=== PATIENT | female | born 1930 | race Caucasian/White ===

== ENCOUNTER → 2016-02-15 | Outpatient (REF) | payer MEDICARE, BC, MEDICAID ==
[~2016-02-15] MED LIST: ACET500T37 PO; ADV100INH INH; ADVAIR INH; ALBU17IN INH; ALBU83IN INH; ALBUTEROL INH; ALPH0.156 OU; ALPHAGAN OU; AMIT10TA PO; AMIT10TA2 PO; ARMO1TAB PO; ARTI99.0 OU; B12 PO; BENI20TA11 PO; BIMA01SOL OU; BYSTOLIC PO; CALC600T21 PO; CALCTAB93 PO; CETI10TA PO; CETI5TAB2; CLAR10CA3 PO; COLA100C PO; CVS5TAB10 PO; CYMB60CA3 PO; DICLCRY TOP; DILT30TA PO; DILT60TA PO; DIOV160T6 PO; DOCU10CA PO; ENEM1ENE4 PR; ERYTOIN8 EXT; EXFO5TAB PO; EXPECTORANT; EXTR500C4 PO; FERR325T3 PO; FERR325T69 PO; FLECTOR1.3; FLON0.05; FOLI400T PO; Flexeril PO; GABA-283 PO; GUAI5EL PO; GUAI5ELAC PO; GUIATUSS PO; IMOD2CHW PO; K-TA10TA2 PO; KLOR1TAB69 PO; LEVO50TA5 PO; LIDO5DIS; LIDO5DIS EXT; LOPE2TAB PO; LOPE2TAB3 PO; MAGN400C2 PO; MAGN400T2 PO; MAGN400T5 PO; MEGA40SU PO; MEGA625S PO; METH2.5TA PO; MILKSUS PO; MIRA3350 PO; MULTCHW13 PO; MULTIVIT OR; MULTIVITAMEN PO; MULTTAB4 PO; NEUR100C PO; NITR4TASL SL; NORV5TAB PO; OCTIVITE PO; PLAV75TA PO; POTA99TA PO; PRED5TAB PO; PRESCAP6 PO; PREV30TA; PRIL20CA PO; PRIL40CA OR; PROT1TAB2 PO; REFRSOL OP; REFRSOL OU; SENO8.6T10 PO; SERO50TA PO; SING10TA32 PO; SOMA250T OR; SOMA350T PO; SYMB16INH INH; SYMB80INH INH; THYR15TA PO; TRAM50TA2 PO; TRAZO50TA PO; TYLE325T5 PO; ULTR37.539 PO; ULTR50TA PO; ULTRTA PO; VENTAER INH; VIT D 2000 PO; VIT D PO; VITA500046 PO; VITA500T3 PO; VOLT1GEL EX; XALA0.002 OU; XANA0.5T PO; [UNRECOGNIZED DRUG - CODE] PO; [UNRECOGNIZED DRUG - CODE] PO; [UNRECOGNIZED DRUG - OTHER] OU; [UNRECOGNIZED DRUG - OTHER] PO; [UNRECOGNIZED DRUG - OTHER] PO; [UNRECOGNIZED DRUG - OTHER] PO; albuterol nebulizer INH
[2016-02-15 10:47] LABS: BASO % 0.5 % (0.0-1.0); EOS # 0.1 K/mm3 (0.0-0.50); EOS % 4.1 % (0.0-3.0); LARGE UNSTAINED CELL # 0.1 K/mm3 (0.0-0.4); LARGE UNSTAINED CELL % 2.7 % (0.0-4.0); LYMPH # 1.5 K/mm3 (1.5-4.5); LYMPH % 50.5 % (24.0-44.0); MEAN CORPUSCULAR HEMOGLOBIN 33.5 pg (27.0-33.0); MEAN CORPUSCULAR HGB CONC 32.4 g/dl (32.0-36.5); MEAN CORPUSCULAR VOLUME 103.3 fl (80.0-96.0); MONO # 0.2 K/mm3 (0.0-0.8); MONO % 6.4 % (0.0-5.0); NEUTROPHILS % 35.9 % (36.0-66.0); PLATELET COUNT, AUTOMATED 153 k/mm3 (150-450); RED CELL DISTRIBUTION WIDTH 13.9 % (11.5-14.5); WHITE BLOOD COUNT 2.8 K/mm3 (4.0-10.0)
[2016-02-15 11:29] LABS: ALBUMIN/GLOBULIN RATIO 1.25 (1.00-1.93); ALKALINE PHOSPHATASE 44 U/L (45-117); ALT/SGPT 13 U/L (12-78); ANION GAP 10 MEQ/L (8-16); AST/SGOT 14 U/L (15-37); BILIRUBIN,TOTAL 0.5 MG/DL (0.2-1.0); BLOOD UREA NITROGEN 18 MG/DL (7-18); CALCIUM LEVEL 8.1 MG/DL (8.8-10.2); CARBON DIOXIDE LEVEL 28 MEQ/L (21-32); CHLORIDE LEVEL 104 MEQ/L (98-107); CREATININE FOR GFR 0.66 MG/DL (0.55-1.02); GLOMERULAR FILTRATION RATE > 60.0 (>32); GLUCOSE, FASTING 72 MG/DL (83-110); POTASSIUM SERUM 4.3 MEQ/L (3.5-5.1); SODIUM LEVEL 142 MEQ/L (136-145); TOTAL PROTEIN 5.4 GM/DL (6.4-8.2)
== END ==
PROVIDERS: ATTEND Internal Medicine Rheumatology
DX: M06.09 Rheumatoid arthritis without rheumatoid factor, multiple sites (principal); M81.0 Age-related osteoporosis without current pathological fracture

== ENCOUNTER 2016-03-01 16:29 | Emergency (ER) | payer MEDICARE, BC, MEDICAID ==
[~2016-03-01 16:29] MED LIST changes: -PLAV75TA PO; +PLAV75TA38 PO; -PRIL20CA PO; +PRIL20CA9 PO
--- NOTE | 2016-03-01 18:36 | EDDOCDS ---
Nurse's Notes [facility] Name: Brit Telles Age: 85 yrs Sex: Female : 1930 Arrival Date: 03/01/2016 Time: 16:29 Bed PR Private MD: Dalton Argueta Diagnosis: Sprain of ankle-RIGHT MEDIAL ANKLE SPRAIN Presentation: 03/01 16:39 Presenting complaint: Patient states: Right foot pain unknown injury dark purple bruise mlb1 noted to medial aspect of right ankle. Adult Sepsis Screening: The patient does not have new or worsening altered mentation. Patient's respiratory rate is less than 22. Systolic blood pressure is greater than 100. Patient has a qSOFA score of 0- Negative Sepsis Screen. Suicide/Homicide risk assessment- the patient denies having any suicidal and/or homicidal ideations and does not present with any other emotional, behavioral or mental health complaints. 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 Transition of care: patient was received from [facility]-assisted. 16:39 Acuity: SUZY Level 4 mlb1 16:39 Method Of Arrival: Walkin/Carried/Asstd mlb1 Triage Assessment: 16:48 General: Appears in no apparent distress, comfortable, Behavior is appropriate for age, mlb1 cooperative. Pain: Location: right foot Pain currently is 10 out of 10 on a pain scale. Pain radiates to right foot. Musculoskeletal: Signs and Symptoms of Compartment Syndrome:. Historical: - Allergies: Alprazolam; Aspirin; Codeine Sulfate; Diazepam; Gluten Protein; IODINEIODINE CONTAINING; lactose (bulk); Latex; Morphine; Oxycodone HCl; PENICILLINS; QUINOLONES; SHELLFISH; SULFA (SULFONAMIDES); Valium; - Home Meds: 1. tramadol 50 mg Oral tab 1 tab every 12 hours as needed 2. Tylenol 500mg Oral 1 tab every 4 hours 3. diltiazem HCl 30 mg Oral tab 1 tab every 8 hours for Hypertension 4. albuterol sulfate 2.5 mg /3 mL (0.083 %) Inhl nebu q4h prn 5. melatonin 5 mg Oral cap nightly 6. Seroquel 50 mg Oral tab 1 tab nightly 7. Claritin 10 mg Oral tab 1 tab once daily 8. Alphagan P 0.15 % ophthalmic drop 1 drop twice a day 9. Artificial Tears 1.4% Opht 1 drop four times a day 10. calcium carbonate 600 mg (1,500 mg) Oral tab twice a day 11. Colace 100 mg oral cap 1 cap twice a day as needed 12. Cymbalta 60 mg Oral cpDR 1 cap nightly 13. Enema Disposable 19-7 gram/118 mL Rectal enem as needed 14. ferrous gluconate 325 mg (37 mg iron) Oral tab nightly 15. folic acid 1 mg Oral tab 1 tab once daily 16. gabapentin 100 mg Oral cap twice a day 17. levothyroxine 50 mcg Oral tab 1 tab once daily 18. loperamide 2 mg Oral tab as needed 19. magnesium oxide 400 mg Oral tab 400 mg twice a day 20. Milk of Magnesia 400 mg/5 mL Oral susp 5 mL as needed 21. Miralax 17 gram/dose Oral powd 17 g as needed 22. nitroglycerin 0.4 mg SL subl 1 tab every 5 minutes 23. potassium chloride 10 mEq Oral cpER 1 cap 2 times per day 24. PreserVision AREDS [id number]-lhje-ky-mg oral 1 cap twice a day 25. ProAir HFA 90 mcg/actuation inhalation HFAA 2 puffs q4h prn 26. Senokot-S 8.6-50 mg oral tab 2 tabs nightly 27. Protonix 40 mg Oral cpDR 1 tab once daily 28. Refresh Optive Advanced 0.5-1-0.5 % ophthalmic drop 1 gtt four times a day 29. Singulair 10 mg Oral tab 1 tab nightly 30. Symbicort 80-4.5 mcg/actuation inhalation HFAA 2 puffs 2 times per day 31. Vitamin B-12 500 mcg Oral tab nightly 32. Vitamin D3 5,000 unit oral tab daily 33. Xalatan 0.005 % Opht drop 1 drop nightly - PMHx: Anemia; Asthma; CHF; Depression; Hypertension; Hypothyroidism; Macular Degeneration; Osteoporosis; peripheral vascular disease; Rheumatoid Arthritis; Scoliosis; Chronic Back pain; Supraventricular complexes; - PSHx: Knee surgery- Right; back surgery; Cataract Surgery- Bilateral; Cholecystectomy; - Social history: Smoking status: Patient states was never smoker of tobacco. No barriers to communication noted, The patient speaks fluent Samoan, Speaks appropriately for age. - Family history: Not pertinent. - : The pt / caregiver states he / she is not on anticoagulants. Home medication list is obtained from the facility MAR. - Exposure Risk Screening:: None identified. None identified. Screenin:29 Screening information is obtained from the patient. Fall risk: At risk due to age, The mlb1 following interventions are performed due to a positive Fall Risk Screen: Fall Risk is added to Special Handling on the patient Summary Screen. A Fall Risk Bracelet was applied to the patient. Side Rails are placed in the up position. A Call Campo is given with instruction to call for help when getting out of bed. Fall Alert bracelet is placed on the patient. Assistance ADL's: Requires assistance with meal preparation, this assistance is provided by residence staff. Abuse/DV Screen: The patient / caregiver reports he/she is: not in a situation that causes fear, pain or injury. Nutritional screening: No deficits noted. Advance Directives: There is an active DNR order and the pt has a copy here at this time. home support is adequate. Assessment: 18:29 General: Appears in no apparent distress, comfortable, Behavior is appropriate for age, mlb1 cooperative. Pain: Location: right foot Pain currently is 2 out of 10 on a pain scale. Respiratory: No deficits noted. Musculoskeletal: Circulation, motion, and sensation intact Range of motion intact in all extremities. Vital Signs: 16:30 BP 128 / 67; Pulse 70; Resp 18; Temp 98.4(O); Pulse Ox 100% on R/A; Weight 48.08 kg elp (R); Height 5 ft. 3 in. (160.02 cm) (R); Pain 5/10; 16:30 Body Mass Index 18.78 (48.08 kg, 160.02 cm) [facility] Vitals: 16:30 Log In Time: March 01, 2016 at 16:28. elp ED Course: 16:30 Patient visited by Jenifer Dhaliwal PCA. elp 16:30 Dalton Argueta is Private Physician. elp 16:30 Patient moved to Waiting elp 16:36 Patient visited by Jenifer Dhaliwal PCA. elp 16:36 Patient moved to Pre RCE elp 16:39 Patient visited by Quinton Valenzuela, [place]. mlb1 16:41 Triage Initiated mlb1 16:49 Patient visited by Quinton Valenzuela RN. mlb1 16:59 Patient moved to Triage 2 ck1 17:27 [facility] dt4 17:27 Darnell Leblanc MD is Attending Physician. dt4 17:27 Patient visited by Jessi Watkins PA-C. dt4 17:39 Patient moved to PR1 / 25 mlb1 18:19 [facility] Payment Agreement was scanned into [employer] and attached to record. zo 18:30 No IV's were initiated during this patient's visit. No procedures done that require mlb1 assistance. 18:31 Patient visited by Quinton Valenzuela, RN. mlb1 18:31 The patient / caregiver is instructed regarding the plan of care and ED course. mlb1 Order Results: There are currently no results for this order. Outcome: 18:10 Discharge ordered by Provider. dt4 18:30 Discharge Assessment: Patient awake, alert and oriented x 3. No cognitive and/or mlb1 functional deficits noted. Patient verbalized understanding of disposition instructions. patient administered narcotics - no. The following High Risk Discharge criteria are identified: None. Discharged to home via wheelchair. Condition: good. Discharge instructions given to patient, Instructed on discharge instructions, follow up and referral plans. Demonstrated understanding of instructions, medications, Pt was receptive of discharge instructions/ teaching. No special radiology studies were completed. Property sent home with patient. 18:36 Patient left the ED. ck1 Signatures: Quinton Valenzuela, RN RN mlb1 Naomi Gallagher RN RN ck1 Denise Chin Erin, SLOT FLOORPERSON SLOT FLOORPERSON elp Jessi Watkins PA-C PA-C dt4 MTDD
--- NOTE | 2016-03-01 18:36 | EDDOCDS ---
Physician Documentation [facility] Name: Brit Telles Age: 85 yrs Sex: Female : 1930 Arrival Date: 03/01/2016 Time: 16:29 Bed PR Private MD: Dalton Argueta Disposition: 03/01/16 18:10 Discharged to Home/Self Care. Impression: Sprain of ankle - RIGHT MEDIAL ANKLE SPRAIN. - Condition is Stable. - Discharge Instructions: Ankle Sprain. - Medication Reconciliation, Local Pharmacy Hours form. - Follow up: Emergency Department; When: As needed; Reason: Worsening of conditions. Follow up: Private Physician; When: 2 - 3 days; Reason: Wound/Symptom Recheck, Recheck today's complaints, Continuance of care. - Problem is new. - Symptoms are unchanged. - Notes: THERE WAS NO FRACTURE ON YOUR XRAYS TODAY. PLEASE FOLLOW UP WITH YOUR PRIMARY CARE PROVIDER IN THE NEXT FEW DAYS TO RECHECK YOUR SYMPTOMS. Historical: - Allergies: Alprazolam; Aspirin; Codeine Sulfate; Diazepam; Gluten Protein; IODINEIODINE CONTAINING; lactose (bulk); Latex; Morphine; Oxycodone HCl; PENICILLINS; QUINOLONES; SHELLFISH; SULFA (SULFONAMIDES); Valium; - Home Meds: 1. tramadol 50 mg Oral tab 1 tab every 12 hours as needed 2. Tylenol 500mg Oral 1 tab every 4 hours 3. diltiazem HCl 30 mg Oral tab 1 tab every 8 hours for Hypertension 4. albuterol sulfate 2.5 mg /3 mL (0.083 %) Inhl nebu q4h prn 5. melatonin 5 mg Oral cap nightly 6. Seroquel 50 mg Oral tab 1 tab nightly 7. Claritin 10 mg Oral tab 1 tab once daily 8. Alphagan P 0.15 % ophthalmic drop 1 drop twice a day 9. Artificial Tears 1.4% Opht 1 drop four times a day 10. calcium carbonate 600 mg (1,500 mg) Oral tab twice a day 11. Colace 100 mg oral cap 1 cap twice a day as needed 12. Cymbalta 60 mg Oral cpDR 1 cap nightly 13. Enema Disposable 19-7 gram/118 mL Rectal enem as needed 14. ferrous gluconate 325 mg (37 mg iron) Oral tab nightly 15. folic acid 1 mg Oral tab 1 tab once daily 16. gabapentin 100 mg Oral cap twice a day 17. levothyroxine 50 mcg Oral tab 1 tab once daily 18. loperamide 2 mg Oral tab as needed 19. magnesium oxide 400 mg Oral tab 400 mg twice a day 20. Milk of Magnesia 400 mg/5 mL Oral susp 5 mL as needed 21. Miralax 17 gram/dose Oral powd 17 g as needed 22. nitroglycerin 0.4 mg SL subl 1 tab every 5 minutes 23. potassium chloride 10 mEq Oral cpER 1 cap 2 times per day 24. PreserVision AREDS [id number]-lo-mg oral 1 cap twice a day 25. ProAir HFA 90 mcg/actuation inhalation HFAA 2 puffs q4h prn 26. Senokot-S 8.6-50 mg oral tab 2 tabs nightly 27. Protonix 40 mg Oral cpDR 1 tab once daily 28. Refresh Optive Advanced 0.5-1-0.5 % ophthalmic drop 1 gtt four times a day 29. Singulair 10 mg Oral tab 1 tab nightly 30. Symbicort 80-4.5 mcg/actuation inhalation HFAA 2 puffs 2 times per day 31. Vitamin B-12 500 mcg Oral tab nightly 32. Vitamin D3 5,000 unit oral tab daily 33. Xalatan 0.005 % Opht drop 1 drop nightly - PMHx: Anemia; Asthma; CHF; Depression; Hypertension; Hypothyroidism; Macular Degeneration; Osteoporosis; peripheral vascular disease; Rheumatoid Arthritis; Scoliosis; Chronic Back pain; Supraventricular complexes; - PSHx: Knee surgery- Right; back surgery; Cataract Surgery- Bilateral; Cholecystectomy; - Social history: Smoking status: Patient states was never smoker of tobacco. No barriers to communication noted, The patient speaks fluent [place], Speaks appropriately for age. - Family history: Not pertinent. - : The pt / caregiver states he / she is not on anticoagulants. Home medication list is obtained from the facility APR. - Exposure Risk Screening:: None identified. None identified. Vital Signs: 03/01 16:30 BP 128 / 67; Pulse 70; Resp 18; Temp 98.4(O); Pulse Ox 100% on R/A; Weight 48.08 kg / elp 106 lbs (R); Height 5 ft. 3 in. (160.02 cm) (R); Pain 5/10; 16:30 Body Mass Index 18.78 (48.08 kg, 160.02 cm) elp MDM: 17:33 Ankle, Complete Ordered. EDMS 18:19 Financial registration complete. zo 18:19 [facility] Payment Agreement was scanned into [employer] and attached to record. zo Signatures: Dispatcher [employer] EDSD Quinton Valenzuela RN RN mlb1 Naomi Gallagher RN RN ck1 Denise Chin Diane, PA-C PAGayathri dt4 The chart was reviewed and I authenticate all verbal orders and agree with the evaluation and treatment provided.Attachments: 18:19 [facility] Payment Agreement zo MTDD
--- NOTE | 2016-03-03 16:38 | REP ---
Right ankle four views: There is diffuse demineralization. There is no fracture or dislocation. The joint space is normal. The mortise is symmetric. The there is a calcaneal Achilles spur. There are small calcifications at the insertion of the plantar fascia on the calcaneus, likely degenerative. Signed by Israel Foy MD 03/03/2016 04:29 P
--- NOTE | 2016-03-03 19:36 | EDDOCDS ---
Nurse's Notes [facility] Name: Brit Telles Age: 85 yrs Sex: Female : 1930 Arrival Date: 03/01/2016 Time: 16:29 Bed PR Private MD: Dalton Argueta Diagnosis: Sprain of ankle-RIGHT MEDIAL ANKLE SPRAIN Presentation: 03/01 16:39 Presenting complaint: Patient states: Right foot pain unknown injury dark purple bruise mlb1 noted to medial aspect of right ankle. Adult Sepsis Screening: The patient does not have new or worsening altered mentation. Patient's respiratory rate is less than 22. Systolic blood pressure is greater than 100. Patient has a qSOFA score of 0- Negative Sepsis Screen. Suicide/Homicide risk assessment- the patient denies having any suicidal and/or homicidal ideations and does not present with any other emotional, behavioral or mental health complaints. Status: Patient is not a medical billing service or dependent. Transition of care: patient was received from [facility]-assisted. 16:39 Acuity: SUZY Level 4 mlb1 16:39 Method Of Arrival: Walkin/Carried/Asstd mlb1 Triage Assessment: 16:48 General: Appears in no apparent distress, comfortable, Behavior is appropriate for age, mlb1 cooperative. Pain: Location: right foot Pain currently is 10 out of 10 on a pain scale. Pain radiates to right foot. Musculoskeletal: Signs and Symptoms of Compartment Syndrome:. Historical: - Allergies: Alprazolam; Aspirin; Codeine Sulfate; Diazepam; Gluten Protein; IODINEIODINE CONTAINING; lactose (bulk); Latex; Morphine; Oxycodone HCl; PENICILLINS; QUINOLONES; SHELLFISH; SULFA (SULFONAMIDES); Valium; - Home Meds: 1. tramadol 50 mg Oral tab 1 tab every 12 hours as needed 2. Tylenol 500mg Oral 1 tab every 4 hours 3. diltiazem HCl 30 mg Oral tab 1 tab every 8 hours for Hypertension 4. albuterol sulfate 2.5 mg /3 mL (0.083 %) Inhl nebu q4h prn 5. melatonin 5 mg Oral cap nightly 6. Seroquel 50 mg Oral tab 1 tab nightly 7. Claritin 10 mg Oral tab 1 tab once daily 8. Alphagan P 0.15 % ophthalmic drop 1 drop twice a day 9. Artificial Tears 1.4% Opht 1 drop four times a day 10. calcium carbonate 600 mg (1,500 mg) Oral tab twice a day 11. Colace 100 mg oral cap 1 cap twice a day as needed 12. Cymbalta 60 mg Oral cpDR 1 cap nightly 13. Enema Disposable 19-7 gram/118 mL Rectal enem as needed 14. ferrous gluconate 325 mg (37 mg iron) Oral tab nightly 15. folic acid 1 mg Oral tab 1 tab once daily 16. gabapentin 100 mg Oral cap twice a day 17. levothyroxine 50 mcg Oral tab 1 tab once daily 18. loperamide 2 mg Oral tab as needed 19. magnesium oxide 400 mg Oral tab 400 mg twice a day 20. Milk of Magnesia 400 mg/5 mL Oral susp 5 mL as needed 21. Miralax 17 gram/dose Oral powd 17 g as needed 22. nitroglycerin 0.4 mg SL subl 1 tab every 5 minutes 23. potassium chloride 10 mEq Oral cpER 1 cap 2 times per day 24. PreserVision AREDS [id number]-cm-mg oral 1 cap twice a day 25. ProAir HFA 90 mcg/actuation inhalation HFAA 2 puffs q4h prn 26. Senokot-S 8.6-50 mg oral tab 2 tabs nightly 27. Protonix 40 mg Oral cpDR 1 tab once daily 28. Refresh Optive Advanced 0.5-1-0.5 % ophthalmic drop 1 gtt four times a day 29. Singulair 10 mg Oral tab 1 tab nightly 30. Symbicort 80-4.5 mcg/actuation inhalation HFAA 2 puffs 2 times per day 31. Vitamin B-12 500 mcg Oral tab nightly 32. Vitamin D3 5,000 unit oral tab daily 33. Xalatan 0.005 % Opht drop 1 drop nightly - PMHx: Anemia; Asthma; CHF; Depression; Hypertension; Hypothyroidism; Macular Degeneration; Osteoporosis; peripheral vascular disease; Rheumatoid Arthritis; Scoliosis; Chronic Back pain; Supraventricular complexes; - PSHx: Knee surgery- Right; back surgery; Cataract Surgery- Bilateral; Cholecystectomy; - Social history: Smoking status: Patient states was never smoker of tobacco. No barriers to communication noted, The patient speaks fluent [place], Speaks appropriately for age. - Family history: Not pertinent. - : The pt / caregiver states he / she is not on anticoagulants. Home medication list is obtained from the facility MAR. - Exposure Risk Screening:: None identified. None identified. Screenin:29 Screening information is obtained from the patient. Fall risk: At risk due to age, The mlb1 following interventions are performed due to a positive Fall Risk Screen: Fall Risk is added to Special Handling on the patient Summary Screen. A Fall Risk Bracelet was applied to the patient. Side Rails are placed in the up position. A Call Campo is given with instruction to call for help when getting out of bed. Fall Alert bracelet is placed on the patient. Assistance ADL's: Requires assistance with meal preparation, this assistance is provided by residence staff. Abuse/DV Screen: The patient / caregiver reports he/she is: not in a situation that causes fear, pain or injury. Nutritional screening: No deficits noted. Advance Directives: There is an active DNR order and the pt has a copy here at this time. home support is adequate. Assessment: 18:29 General: Appears in no apparent distress, comfortable, Behavior is appropriate for age, mlb1 cooperative. Pain: Location: right foot Pain currently is 2 out of 10 on a pain scale. Respiratory: No deficits noted. Musculoskeletal: Circulation, motion, and sensation intact Range of motion intact in all extremities. Vital Signs: 16:30 BP 128 / 67; Pulse 70; Resp 18; Temp 98.4(O); Pulse Ox 100% on R/A; Weight 48.08 kg elp (R); Height 5 ft. 3 in. (160.02 cm) (R); Pain 5/10; 16:30 Body Mass Index 18.78 (48.08 kg, 160.02 cm) [facility] Vitals: 16:30 Log In Time: March 01, 2016 at 16:28. elp ED Course: 16:30 Patient visited by Jenifer Dhaliwal PCA. elp 16:30 Dalton Argueta is Private Physician. elp 16:30 Patient moved to Waiting elp 16:36 Patient visited by Jenifer Dhaliwal PCA. elp 16:36 Patient moved to Pre RCE elp 16:39 Patient visited by Quinton Valenzuela, [place]. mlb1 16:41 Triage Initiated mlb1 16:49 Patient visited by Quinton Valenzuela RN. mlb1 16:59 Patient moved to Triage 2 ck1 17:27 Jessi Watkins PA-C is PHCP. dt4 17:27 Darnell Leblanc MD is Attending Physician. dt4 17:27 Patient visited by Jessi Watkins PA-C. dt4 17:39 Patient moved to PR1 / 25 mlb1 18:19 [facility] Payment Agreement was scanned into [employer] and attached to record. zo 18:30 No IV's were initiated during this patient's visit. No procedures done that require mlb1 assistance. 18:31 Patient visited by Quinton Valenzuela, [place]. mlb1 18:31 The patient / caregiver is instructed regarding the plan of care and ED course. [facility] 03/02 11:35 T-Sheet-- Draft Copy was scanned into [employer] and attached to record. 03/03 17:23 Ankle, Complete Returned. EDMS Order Results: Radiology Order: Ankle, Complete Test: Ankle, Complete REASON FOR EXAMINATION: right ankle bruising/pain; Right ankle four views:; ; There is diffuse demineralization. There is no fracture or dislocation. The; joint space is normal. The mortise is symmetric. The there is a calcaneal; Achilles spur. There are small calcifications at the insertion of the plantar; fascia on the calcaneus, likely degenerative.; ; ; Signed by; Israel Foy MD 03/03/2016 04:29 P; Outcome: 03/01 18:10 Discharge ordered by Provider. dt4 18:30 Discharge Assessment: Patient awake, alert and oriented x 3. No cognitive and/or mlb1 functional deficits noted. Patient verbalized understanding of disposition instructions. patient administered narcotics - no. The following High Risk Discharge criteria are identified: None. Discharged to home via wheelchair. Condition: good. Discharge instructions given to patient, Instructed on discharge instructions, follow up and referral plans. Demonstrated understanding of instructions, medications, Pt was receptive of discharge instructions/ teaching. No special radiology studies were completed. Property sent home with patient. 18:36 Patient left the ED. ck1 Signatures: [facility] Lety Wilkins, [place] Perry Quinton Valenzuela RN RN Naomi Casey RN RN ck1 Denies Chin Erin, FRUIT PICKER MACHINE OPERATOR FRUIT PICKER MACHINE OPERATOR elp Tschubobo, Jessi, PA-C PA-C dt4 Chart Complete MTDD
--- NOTE | 2016-03-03 19:36 | EDDOCDS ---
Physician Documentation [facility] Name: Brit Telles Age: 85 yrs Sex: Female : 1930 Arrival Date: 03/01/2016 Time: 16:29 Bed PR Private MD: Dalton Argueta Disposition: 03/01/16 18:10 Discharged to Home/Self Care. Impression: Sprain of ankle - RIGHT MEDIAL ANKLE SPRAIN. - Condition is Stable. - Discharge Instructions: Ankle Sprain. - Medication Reconciliation, Local Pharmacy Hours form. - Follow up: Emergency Department; When: As needed; Reason: Worsening of conditions. Follow up: Private Physician; When: 2 - 3 days; Reason: Wound/Symptom Recheck, Recheck today's complaints, Continuance of care. - Problem is new. - Symptoms are unchanged. - Notes: THERE WAS NO FRACTURE ON YOUR XRAYS TODAY. PLEASE FOLLOW UP WITH YOUR PRIMARY CARE PROVIDER IN THE NEXT FEW DAYS TO RECHECK YOUR SYMPTOMS. Historical: - Allergies: Alprazolam; Aspirin; Codeine Sulfate; Diazepam; Gluten Protein; IODINEIODINE CONTAINING; lactose (bulk); Latex; Morphine; Oxycodone HCl; PENICILLINS; QUINOLONES; SHELLFISH; SULFA (SULFONAMIDES); Valium; - Home Meds: 1. tramadol 50 mg Oral tab 1 tab every 12 hours as needed 2. Tylenol 500mg Oral 1 tab every 4 hours 3. diltiazem HCl 30 mg Oral tab 1 tab every 8 hours for Hypertension 4. albuterol sulfate 2.5 mg /3 mL (0.083 %) Inhl nebu q4h prn 5. melatonin 5 mg Oral cap nightly 6. Seroquel 50 mg Oral tab 1 tab nightly 7. Claritin 10 mg Oral tab 1 tab once daily 8. Alphagan P 0.15 % ophthalmic drop 1 drop twice a day 9. Artificial Tears 1.4% Opht 1 drop four times a day 10. calcium carbonate 600 mg (1,500 mg) Oral tab twice a day 11. Colace 100 mg oral cap 1 cap twice a day as needed 12. Cymbalta 60 mg Oral cpDR 1 cap nightly 13. Enema Disposable 19-7 gram/118 mL Rectal enem as needed 14. ferrous gluconate 325 mg (37 mg iron) Oral tab nightly 15. folic acid 1 mg Oral tab 1 tab once daily 16. gabapentin 100 mg Oral cap twice a day 17. levothyroxine 50 mcg Oral tab 1 tab once daily 18. loperamide 2 mg Oral tab as needed 19. magnesium oxide 400 mg Oral tab 400 mg twice a day 20. Milk of Magnesia 400 mg/5 mL Oral susp 5 mL as needed 21. Miralax 17 gram/dose Oral powd 17 g as needed 22. nitroglycerin 0.4 mg SL subl 1 tab every 5 minutes 23. potassium chloride 10 mEq Oral cpER 1 cap 2 times per day 24. PreserVision AREDS [id number]-bvqs-dc-mg oral 1 cap twice a day 25. ProAir HFA 90 mcg/actuation inhalation HFAA 2 puffs q4h prn 26. Senokot-S 8.6-50 mg oral tab 2 tabs nightly 27. Protonix 40 mg Oral cpDR 1 tab once daily 28. Refresh Optive Advanced 0.5-1-0.5 % ophthalmic drop 1 gtt four times a day 29. Singulair 10 mg Oral tab 1 tab nightly 30. Symbicort 80-4.5 mcg/actuation inhalation HFAA 2 puffs 2 times per day 31. Vitamin B-12 500 mcg Oral tab nightly 32. Vitamin D3 5,000 unit oral tab daily 33. Xalatan 0.005 % Opht drop 1 drop nightly - PMHx: Anemia; Asthma; CHF; Depression; Hypertension; Hypothyroidism; Macular Degeneration; Osteoporosis; peripheral vascular disease; Rheumatoid Arthritis; Scoliosis; Chronic Back pain; Supraventricular complexes; - PSHx: Knee surgery- Right; back surgery; Cataract Surgery- Bilateral; Cholecystectomy; - Social history: Smoking status: Patient states was never smoker of tobacco. No barriers to communication noted, The patient speaks fluent Armenian, Speaks appropriately for age. - Family history: Not pertinent. - : The pt / caregiver states he / she is not on anticoagulants. Home medication list is obtained from the facility APR. - Exposure Risk Screening:: None identified. None identified. Vital Signs: 03/01 16:30 BP 128 / 67; Pulse 70; Resp 18; Temp 98.4(O); Pulse Ox 100% on R/A; Weight 48.08 kg / elp 106 lbs (R); Height 5 ft. 3 in. (160.02 cm) (R); Pain 5/10; 16:30 Body Mass Index 18.78 (48.08 kg, 160.02 cm) elp MDM: 17:33 Ankle, Complete Ordered. EDMS 18: Financial registration complete. zo : [facility] Payment Agreement was scanned into [employer] and attached to record. zo 03/02 11:35 T-Sheet-- Draft Copy was scanned into [employer] and attached to record. gb Signatures: Dispatcher [employer] EDMS Lety Wilkins, Reg Reg gb Nicolas, Quinton Camarena RN RN mlb1 Naomi GallagherRN RN ck1 Denise Chin Diane, PA-C PA-C dt4 The chart was reviewed and I authenticate all verbal orders and agree with the evaluation and treatment provided.Attachments: 03/01 18: [facility] Payment Agreement zo 03/02 11:35 T-Sheet-- Draft Copy gb Chart Complete MTDD
--- NOTE | 2016-03-03 19:36 | EDDOCDS ---
Physician Documentation [facility] Name: Brit Telles Age: 85 yrs Sex: Female : 1930 Arrival Date: 03/01/2016 Time: 16:29 Bed PR Private MD: Dalton Argueta Disposition: 03/01/16 18:10 Discharged to Home/Self Care. Impression: Sprain of ankle - RIGHT MEDIAL ANKLE SPRAIN. - Condition is Stable. - Discharge Instructions: Ankle Sprain. - Medication Reconciliation, Local Pharmacy Hours form. - Follow up: Emergency Department; When: As needed; Reason: Worsening of conditions. Follow up: Private Physician; When: 2 - 3 days; Reason: Wound/Symptom Recheck, Recheck today's complaints, Continuance of care. - Problem is new. - Symptoms are unchanged. - Notes: THERE WAS NO FRACTURE ON YOUR XRAYS TODAY. PLEASE FOLLOW UP WITH YOUR PRIMARY CARE PROVIDER IN THE NEXT FEW DAYS TO RECHECK YOUR SYMPTOMS. Historical: - Allergies: Alprazolam; Aspirin; Codeine Sulfate; Diazepam; Gluten Protein; IODINEIODINE CONTAINING; lactose (bulk); Latex; Morphine; Oxycodone HCl; PENICILLINS; QUINOLONES; SHELLFISH; SULFA (SULFONAMIDES); Valium; - Home Meds: 1. tramadol 50 mg Oral tab 1 tab every 12 hours as needed 2. Tylenol 500mg Oral 1 tab every 4 hours 3. diltiazem HCl 30 mg Oral tab 1 tab every 8 hours for Hypertension 4. albuterol sulfate 2.5 mg /3 mL (0.083 %) Inhl nebu q4h prn 5. melatonin 5 mg Oral cap nightly 6. Seroquel 50 mg Oral tab 1 tab nightly 7. Claritin 10 mg Oral tab 1 tab once daily 8. Alphagan P 0.15 % ophthalmic drop 1 drop twice a day 9. Artificial Tears 1.4% Opht 1 drop four times a day 10. calcium carbonate 600 mg (1,500 mg) Oral tab twice a day 11. Colace 100 mg oral cap 1 cap twice a day as needed 12. Cymbalta 60 mg Oral cpDR 1 cap nightly 13. Enema Disposable 19-7 gram/118 mL Rectal enem as needed 14. ferrous gluconate 325 mg (37 mg iron) Oral tab nightly 15. folic acid 1 mg Oral tab 1 tab once daily 16. gabapentin 100 mg Oral cap twice a day 17. levothyroxine 50 mcg Oral tab 1 tab once daily 18. loperamide 2 mg Oral tab as needed 19. magnesium oxide 400 mg Oral tab 400 mg twice a day 20. Milk of Magnesia 400 mg/5 mL Oral susp 5 mL as needed 21. Miralax 17 gram/dose Oral powd 17 g as needed 22. nitroglycerin 0.4 mg SL subl 1 tab every 5 minutes 23. potassium chloride 10 mEq Oral cpER 1 cap 2 times per day 24. PreserVision AREDS [phone]-vr-mg oral 1 cap twice a day 25. ProAir HFA 90 mcg/actuation inhalation HFAA 2 puffs q4h prn 26. Senokot-S 8.6-50 mg oral tab 2 tabs nightly 27. Protonix 40 mg Oral cpDR 1 tab once daily 28. Refresh Optive Advanced 0.5-1-0.5 % ophthalmic drop 1 gtt four times a day 29. Singulair 10 mg Oral tab 1 tab nightly 30. Symbicort 80-4.5 mcg/actuation inhalation HFAA 2 puffs 2 times per day 31. Vitamin B-12 500 mcg Oral tab nightly 32. Vitamin D3 5,000 unit oral tab daily 33. Xalatan 0.005 % Opht drop 1 drop nightly - PMHx: Anemia; Asthma; CHF; Depression; Hypertension; Hypothyroidism; Macular Degeneration; Osteoporosis; peripheral vascular disease; Rheumatoid Arthritis; Scoliosis; Chronic Back pain; Supraventricular complexes; - PSHx: Knee surgery- Right; back surgery; Cataract Surgery- Bilateral; Cholecystectomy; - Social history: Smoking status: Patient states was never smoker of tobacco. No barriers to communication noted, The patient speaks fluent Japanese, Speaks appropriately for age. - Family history: Not pertinent. - : The pt / caregiver states he / she is not on anticoagulants. Home medication list is obtained from the facility APR. - Exposure Risk Screening:: None identified. None identified. Vital Signs: 03/01 16:30 BP 128 / 67; Pulse 70; Resp 18; Temp 98.4(O); Pulse Ox 100% on R/A; Weight 48.08 kg / elp 106 lbs (R); Height 5 ft. 3 in. (160.02 cm) (R); Pain 5/10; 16:30 Body Mass Index 18.78 (48.08 kg, 160.02 cm) elp MDM: 17:33 Ankle, Complete Ordered. EDMS 18: Financial registration complete. zo : [facility] Payment Agreement was scanned into [employer] and attached to record. zo 03/02 11:35 T-Sheet-- Draft Copy was scanned into [employer] and attached to record. gb Signatures: Dispatcher [employer] EDMS Lety Wilkins, Reg Reg gb Nicolas, Quinton Camarena RN RN mlb1 Naomi GallagherRN RN ck1 Denise Chin Diane, PA-C PA-C dt4 The chart was reviewed and I authenticate all verbal orders and agree with the evaluation and treatment provided.Attachments: 03/01 18: [facility] Payment Agreement zo 03/02 11:35 T-Sheet-- Draft Copy gb Chart Complete MTDD
== END 2016-03-01 18:36 | disposition home or self-care (01) ==
LOC: M ED 16:29
DX: S93.401A Sprain of unspecified ligament of right ankle, initial encounter (principal); X58.XXXA Exposure to other specified factors, initial encounter; Y92.89 Other specified places as the place of occurrence of the external cause; Y93.89 Activity, other specified; Y99.8 Other external cause status; R58 Hemorrhage, not elsewhere classified; I10 Essential (primary) hypertension; I50.9 Heart failure, unspecified; J45.909 Unspecified asthma, uncomplicated; D64.9 Anemia, unspecified; F32.9 Major depressive disorder, single episode, unspecified; E03.9 Hypothyroidism, unspecified; H35.30 Unspecified macular degeneration; M81.0 Age-related osteoporosis without current pathological fracture; I73.9 Peripheral vascular disease, unspecified; M06.9 Rheumatoid arthritis, unspecified; M41.9 Scoliosis, unspecified; M54.9 Dorsalgia, unspecified; G89.29 Other chronic pain; Z79.899 Other long term (current) drug therapy; Z79.52 Long term (current) use of systemic steroids; Z79.51 Long term (current) use of inhaled steroids; Z88.0 Allergy status to penicillin; Z88.2 Allergy status to sulfonamides; Z88.5 Allergy status to narcotic agent; Z88.6 Allergy status to analgesic agent; Z88.8 Allergy status to other drugs, medicaments and biological substances; Z91.018 Allergy to other foods; Z91.040 Latex allergy status; E73.9 Lactose intolerance, unspecified; Z91.013 Allergy to seafood

== ENCOUNTER → 2016-03-07 | Outpatient (REF) | payer MEDICARE, BC | PROVIDERS: ATTEND Physician Assistant | DX: N39.0 Urinary tract infection, site not specified (principal) ==

== ENCOUNTER → 2016-03-21 | Outpatient (REF) | payer MEDICARE, BC, MEDICAID ==
[2016-03-21 12:53] LABS: BASO % 0.4 % (0.0-1.0); EOS # 0.1 K/mm3 (0.0-0.50); EOS % 3.1 % (0.0-3.0); LARGE UNSTAINED CELL # 0.1 K/mm3 (0.0-0.4); LARGE UNSTAINED CELL % 2.6 % (0.0-4.0); LYMPH # 1.3 K/mm3 (1.5-4.5); LYMPH % 32.8 % (24.0-44.0); MEAN CORPUSCULAR HEMOGLOBIN 33.5 pg (27.0-33.0); MEAN CORPUSCULAR VOLUME 101.6 fl (80.0-96.0); MONO # 0.2 K/mm3 (0.0-0.8); MONO % 5.5 % (0.0-5.0); NEUTROPHILS # 2.2 K/mm3 (1.8-7.7); NEUTROPHILS % 55.6 % (36.0-66.0); PLATELET COUNT, AUTOMATED 166 k/mm3 (150-450)
[2016-03-21 13:05] LABS: ALBUMIN 2.9 GM/DL (3.2-5.2); ALBUMIN/GLOBULIN RATIO 1.21 (1.00-1.93); ALKALINE PHOSPHATASE 56 U/L (45-117); ALT/SGPT 15 U/L (12-78); ANION GAP 10 MEQ/L (8-16); AST/SGOT 12 U/L (15-37); BILIRUBIN,TOTAL 0.3 MG/DL (0.2-1.0); BLOOD UREA NITROGEN 21 MG/DL (7-18); CALCIUM LEVEL 8.1 MG/DL (8.8-10.2); CARBON DIOXIDE LEVEL 27 MEQ/L (21-32); CHLORIDE LEVEL 103 MEQ/L (98-107); CREATININE FOR GFR 0.74 MG/DL (0.55-1.02); GLOMERULAR FILTRATION RATE > 60.0 (>32); GLUCOSE, FASTING 105 MG/DL (83-110); POTASSIUM SERUM 3.8 MEQ/L (3.5-5.1); SODIUM LEVEL 140 MEQ/L (136-145); TOTAL PROTEIN 5.3 GM/DL (6.4-8.2)
== END ==
PROVIDERS: ATTEND Physician Assistant
DX: M06.09 Rheumatoid arthritis without rheumatoid factor, multiple sites (principal); Z79.899 Other long term (current) drug therapy; M81.0 Age-related osteoporosis without current pathological fracture

== ENCOUNTER → 2016-04-05 | Outpatient (REF) | payer MEDICARE, BC, MEDICAID ==
[2016-04-05 10:28] LABS: CALCIUM LEVEL 8.7 MG/DL (8.8-10.2)
== END ==
PROVIDERS: ATTEND Internal Medicine Endocrinology, Diabetes & Metabolism
DX: M81.0 Age-related osteoporosis without current pathological fracture (principal); E55.9 Vitamin D deficiency, unspecified

== ENCOUNTER → 2016-04-18 | Outpatient (REF) | payer MEDICARE, MEDICAID ==
[2016-04-18 11:13] LABS: BASO % 0.6 % (0.0-1.0); EOS # 0.3 K/mm3 (0.0-0.50); LARGE UNSTAINED CELL # 0.1 K/mm3 (0.0-0.4); LARGE UNSTAINED CELL % 2.1 % (0.0-4.0); LYMPH # 1.1 K/mm3 (1.5-4.5); LYMPH % 26.5 % (24.0-44.0); MEAN CORPUSCULAR HEMOGLOBIN 32.5 pg (27.0-33.0); MEAN CORPUSCULAR HGB CONC 32.1 g/dl (32.0-36.5); MEAN CORPUSCULAR VOLUME 101.2 fl (80.0-96.0); MONO # 0.3 K/mm3 (0.0-0.8); MONO % 7.2 % (0.0-5.0); NEUTROPHILS # 2.2 K/mm3 (1.8-7.7); NEUTROPHILS % 55.5 % (36.0-66.0); PLATELET COUNT, AUTOMATED 171 k/mm3 (150-450); WHITE BLOOD COUNT 3.9 K/mm3 (4.0-10.0)
[2016-04-18 11:56] LABS: ALBUMIN 3.1 GM/DL (3.2-5.2); ALKALINE PHOSPHATASE 80 U/L (45-117); ALT/SGPT 9 U/L (12-78); ANION GAP 12 MEQ/L (8-16); AST/SGOT 12 U/L (15-37); BILIRUBIN,TOTAL 0.3 MG/DL (0.2-1.0); BLOOD UREA NITROGEN 22 MG/DL (7-18); CALCIUM LEVEL 8.4 MG/DL (8.8-10.2); CARBON DIOXIDE LEVEL 24 MEQ/L (21-32); CHLORIDE LEVEL 101 MEQ/L (98-107); CREATININE FOR GFR 0.74 MG/DL (0.55-1.02); GLOMERULAR FILTRATION RATE > 60.0 (>32); GLUCOSE, FASTING 80 MG/DL (83-110); SODIUM LEVEL 137 MEQ/L (136-145); TOTAL PROTEIN 6.2 GM/DL (6.4-8.2)
== END ==
PROVIDERS: ATTEND Family Medicine
DX: M06.09 Rheumatoid arthritis without rheumatoid factor, multiple sites (principal); Z79.899 Other long term (current) drug therapy; M81.0 Age-related osteoporosis without current pathological fracture

== ENCOUNTER → 2016-05-04 | Outpatient (CLI) | payer MEDICARE, MEDICAID ==
--- NOTE | 2016-05-04 12:40 | REP ---
Clinical: Acute bronchitis. Technique: PA and lateral. Comparison: 01/28/2016. Findings: Mediastinum and cardiac silhouette stable. Atherosclerotic changes to the thoracic aorta noted. Lung moore demonstrate chronic changes including calcified granulomata. No acute consolidation, effusion, or pneumothorax. Skeletal structures demonstrate osteopenia and degenerative changes. Impression: Chronic changes similar to prior examination. No acute cardiopulmonary process identified. Signed by Checo Delgado MD 05/04/2016 12:33 P
== END ==
LOC: M RAD 12:08
PROVIDERS: ATTEND Family Medicine
DX: J06.9 Acute upper respiratory infection, unspecified (principal)

== ENCOUNTER → 2016-05-17 | Outpatient (REF) | payer MEDICARE, MEDICAID, BC ==
[~2016-05-17] MED LIST changes: -COLA100C PO; +COLA100C3 PO; -CVS5TAB10 PO; +CVS5TAB13 PO
== END ==
PROVIDERS: ATTEND Physician Assistant
DX: M06.09 Rheumatoid arthritis without rheumatoid factor, multiple sites (principal); Z79.899 Other long term (current) drug therapy

== ENCOUNTER → 2016-05-29 | Outpatient (CLI) | payer MEDICARE, BC ==
--- NOTE | 2016-06-10 00:28 | ECWPNPC ---
PATIENT NAME: LIZANDRO GOETZ : 1930 GENDER: FEMALE VISIT DATE: 05/29/2016 DISCHARGE DATE: 05/29/16 1255 VISIT LOCKED DATE TIME: PHYSICIAN: LAWANDA ESPINO RESOURCE: LAWANDA ESPINO HISTORY OF PRESENT ILLNESS HISTORY OF PRESENT ILLNESS: PAIN THE PATIENT DESCRIBES THE PAIN... FALL RISK SCREENING: SCREENING :NO FALLS IN THE PAST YEAR TODAY'S VISIT: NOTES: RATES PAIN TODAY 8/10. DESCRIBESPAIN BURNING, SORE AND SHOOTING. WANTS DR BONILLA TO ADDRESS PAIN IN NECK, RIGHT AREA, AND ACROSS LOW BACK. . CURRENT MEDICATIONS TAKING PRESERVISION/LUTEIN CAPSULE ORALLY DAILY, NOTES: TAKING DILTIAZEM HCL 30 MG TABLET ORALLY EVERY 8 HOURS, NOTES: 09/23/2015543 TAKING COLACE 100 MG CAPSULE 1 CAPSULE NEEDED ORALLY BID PRN, NOTES: 09/22/15924 TAKING FERROUS GLUCONATE 325 MG CAPSULE ORALLY DAILY, NOTES: 09/22/20152123 TAKING GABAPENTIN 100 MG CAPSULE ORALLY BID, NOTES: 09/22/20152123 TAKING VENTOLIN HFA 108 (90 BASE) MCG/ACT AEROSOL SOLUTION 2 PUFFS INHALATION ONCE A DAY, NOTES: UNK TAKING POTASSIUM CHLORIDE 10 MEQ CAPSULE EXTENDED RELEASE 1 CAPSULE ORALLY BID, NOTES: 09/22/152123 TAKING METHOTREXATE 2.5 MG TABLET ORALLY ONCE A WEEK, NOTES: 09/17/15 TAKING FOLIC ACID 1 MG TABLET 1 TABLET ORALLY ONCE A DAY, NOTES: 09/22/20152123 TAKING VITAMIN B12 100 MCG TABLET 1 500MCG TABLET ORALLY ONCE A DAY, NOTES: 09/22/20152123 TAKING ALPHAGAN P 0.15 % SOLUTION 1 DROP INTO AFFECTED EYE OPHTHALMIC DIRECTED, NOTES: 09/22/152124 TAKING VITAMIN D 1000 UNIT TABLET 1 TABLET ORALLY ONCE A DAY, NOTES: 09/22/15 112 TAKING PROTONIX 40 MG TABLET DELAYED RELEASE 1 TABLET ORALLY ONCE A DAY, NOTES: 09/22/15 09 TAKING TYLENOL EXTRA STRENGTH 500 MG TABLET 1 TABLET NEEDED ORALLY EVERY 4 HRS, NOTES: 09/23/2015 015 TAKING LEVOTHYROXINE SODIUM 50 MCG TABLET 1 TABLET ORALLY ONCE A DAY, NOTES: 09/23/2015 05 TAKING TRAMADOL HCL 50 MG TABLET 1 TAB ORALLY EVERY 12 HOURS NEEDED, NOTES: 09/22/20152136 TAKING MAGNESIUM OXIDE 400 MG TABLET ORALLY BID, NOTES: 09/22/152123 TAKING MELATONIN 5 MG TABLET 1 TABLET AT BEDTIME NEEDED WITH FOOD ORALLY BEFORE BEDTIME, NOTES: 09/22/152123 TAKING CALCIUM CARBONATE 600 MG TABLET ORALLY BID, NOTES: 09/22/152128 TAKING PENNSAID 2 % SOLUTION 2 APPLICATIONS TO AFFECTED AREA TRANSDERMAL AT RIGHT KNEE THREE TIMES DAILY TAKING VOLTAREN 1 % GEL DIRECTED AT RIGHT KNEE TRANSDERMAL THREE TIMES DAILY NEEDED FOR PAIN TAKING MIRALAX - PACKET 1 PACKET MIXED WITH 8 OUNCES OF FLUID ORALLY ONCE A DAY TAKING SYMBICORT 80-4.5 MCG/ACT AEROSOL 2 PUFFS INHALATION TWICE A DAY TAKING CLARITIN 10 MG TABLET 1 TABLET ORALLY ONCE A DAY, NOTES: 09/22/15928 TAKING LATANOPROST 0.005 % SOLUTION 1 DROP INTO AFFECTED EYE IN THE EVENING OPHTHALMIC ONCE A DAY TAKING COMBIGAN 0.2-0.5 % SOLUTION 1 DROP INTO AFFECTED EYE OPHTHALMIC TWICE A DAY TAKING AZOPT 1 % SUSPENSION 1 DROP INTO AFFECTED EYE OPHTHALMIC BID TAKING METHAZOLAMIDE 25 MG TABLET 2 TABLETS ORALLY TWICE A DAY TAKING BREO ELLIPTA 100-25 MCG/INH AEROSOL POWDER BREATH ACTIVATED 1 PUFF INHALATION ONCE A DAY TAKING QUETIAPINE FUMARATE 50 MG TABLET 1 TABLET ORALLY BEFORE BEDTIME TAKING VITAMIN D-3 5000 UNIT TABLET 1 TABLET ORALLY ONCE A DAY TAKING ARTIFICIAL TEAR SOLUTION - SOLUTION 1 DROP OU OPHTHALMIC FOUR TIMES DAILY TAKING SENOKOT S 8.6-50 MG TABLET 1 TABLET IN THE EVENING NEEDED ORALLY ONCE A DAY TAKING REFRESH OPTIVE ADVANCED 0.5-1-0.5 % SOLUTION 1 DROP OPHTHALMIC FOUR TIMES DAILY TAKING PROAIR HFA 108 (90 BASE) MCG/ACT AEROSOL SOLUTION 2 PUFFS NEEDED INHALATION EVERY 4 HRS TAKING NITROGLYCERIN 0.4 MG TABLET SUBLINGUAL SUBLINGUAL PRN TAKING MILK OF MAGNESIA 400 MG/5ML SUSPENSION 5 ML NEEDED ORALLY FOUR TIMES A DAY TAKING LOPERAMIDE A-D 2 MG TABLET 1-2 TABS ORALLY DAILY PRN TAKING ENEMA 7-19 GM/118ML ENEMA _ DAILY PRN TAKING CYMBALTA 60 MG 1 TABLET PO ONCE DAILY NOT-TAKING SINGULAIR 10 MG TABLET 1 TABLET IN THE EVENING ORALLY ONCE A DAY, NOTES: 09/22/152123 NOT-TAKING ALBUTEROL SULFATE (5 MG/ML) 0.5% NEBULIZATION SOLUTION 0.5 ML INHALATION THREE TIMES A DAY NOT-TAKING FLONASE 50 MCG/ACT SUSPENSION 1 PUFF IN EACH NOSTRIL NASALLY ONCE A DAY NOT-TAKING LUMIGAN 0.03 % SOLUTION 1 DROP INTO AFFECTED EYE EVERY EVENING OPHTHALMIC ONCE A DAY NOT-TAKING MULTI FOR HER TABLET DIRECTED ORALLY DISCONTINUED VOLTAREN 1 % GEL 1 STRIP TRANSDERMAL AT RIGHT KNEE THREE TIMES DAILY PRN FOR PAIN DISCONTINUED PLAVIX 75 MG TABLET 1 TABLET ORALLY ONCE A DAY MEDICATION LIST REVIEWED AND RECONCILED WITH THE PATIENT PAST MEDICAL HISTORY ASTHMA ARTHRITIS SPRAINED RIGHT LEG ALLERGIES CODEINE SULFATE: HIVES: ALLERGY PENICILLIN G BENZATHINE: HIVES: ALLERGY SULFAMETHOXAZOLE: HIVES: ALLERGY IODINE: HIVES: ALLERGY LACTOSE: NAUSEA/VOMITING: ALLERGY SHELL FISH: NAUSEA/VOMITING: ALLERGY ASPIRIN: GI UPSET ALPRAZOLAM SOCIAL HISTORY GENERAL: PAIN CLINIC PFS, CLERGY, PUBLIC HEALTH REFERRALS CLERGY REFERRAL NEEDED?NO WAS THE PROVIDER NOTIFIED OF ANY PERTINENT INFO?NO PFS REFERRAL NEEDED?NO PUBLIC HEALTH REFERRAL NEEDED?NO PATIENT: ____. REVIEW OF SYSTEMS CONSTITUTIONAL: ANY CHANGE IN YOUR MEDICAL CONDITION? NO . CHILLS NO . FEVER NO . INFECTION: DO YOU HAVE NEW INFECTIONS? NO . DO YOU HAVE HISTORY OF MRSA? NO . MUSCULOSKELETAL: ANY NEW PATTERNS OF PAIN OR NUMBNESS? NO . GASTROENTEROLOGY: ANY NEW CHANGE IN BOWEL CONTROL? NO . GENITOURINARY: ANY NEW CHANGE IN BLADDER CONTROL? NO . IS THERE A CHANCE YOU COULD BE ? NO . HEMATOLOGY/LYMPH: DO YOU TAKE ANY BLOOD THINNERS? (FOR EXAMPLE- COUMADIN, PLAVIX, AGGRENOX, PLATEL, PRADAXA, OR XARELTO) NO . WHEN WAS YOUR LAST DOSE? DATE: TIME: . NEUROLOGY: HAVE YOU FALLEN IN THE PAST 6 MONTHS? NO . ANY NEW EXTREMITY NUMBNESS OR WEAKNESS? NO . CARDIOLOGY: DO YOU HAVE A PACEMAKER OR DEFIBRILLATOR? NO . RESPIRATORY: HAVE YOU BEEN SICK IN THE PAST WEEK? NO . FEVER NO . FLU LIKE SYMPTOMS? NO . COUGH NO . INTEGUMENTARY: DO YOU HAVE ANY RASHES OR OPEN SORES? NO . ALLERGIC/IMMUNO: ARE YOU ALLERGIC TO SHELLFISH OR IV DYE? YES . ANY NEW ALLERGIES? NO . PSYCHIATRIC: DO YOU HAVE THOUGHTS OF HURTING YOURSELF OR SOMEONE ELSE? NO . ARE YOU ABUSED, NEGLECTED, OR IN AN UNSAFE ENVIRONMENT? NO . ENDOCRINOLOGY: ARE YOU DIABETIC? NO . OTHER: DO YOU NEED ANY PRESCRIPTIONS? NO . IF YES, PLEASE LIST: ____ . ANY NEW PROBLEMS WITH YOUR MEDICATIONS? NO . WHEN DID YOU LAST EAT? ____ . WHEN DID YOU LAST DRINK? ____ . WHAT DID YOU LAST DRINK? ____ . NAME OF PERSON DRIVING YOU HOME? ____ . DO YOU HAVE ANY OTHER QUESTIONS OR CONCERNS NO . REVIEWED BY: PROVIDER: LAWANDA NASH . VITAL SIGNS WT 119 LBS, HT 66 IN, BMI 19.21 INDEX, BP 121/72 MM HG, HR 60 /MIN, RR 16 /MIN, TEMP 99.4 F, OXYGEN SAT % 100, NA INITIALS AW 1200, REVIEWED BY: AD. EXAMINATION GENERAL EXAMINATION: GENERAL APPEARANCE:COLOR PALE. PSYCHALERT , ORIENTED X 3 . SOME DIFFICULTY NOTEED WITH MEMORY OR RECENT. LUNGS:CLEAR TO AUSCULTATION BILATERALLY. HEART:HEART RATE IR-REGULAR. MUSCULOSKELETAL: NEEDS ASSISTANCE TO STAND. . SLOW TO RISE TO A STANDING POSITION., POSTURE STOOPED, ROTATED. TRIGGER POINTS:, ELICITED WITH PALPATION OVER CERVICAL PARASPINOUS MUSCLES AND OVER THE RIGHT TRAPEZIUS. WELL LUMBAR PARAVERTEBRAL MUSCLES AND INTO THE SACRUM. RESTRICTION OF ROM IN THIS AREA. WALKER USED FOR BALANCE. TENDERNESS OVER MEDIAL RIGHT KNEE.. EXTREMITIES:SLIGHT EDEMA OVER BOTH LOWE EXTREMITES. ASSESSMENTS MYALGIA - M79.1 (PRIMARY) BACK PAIN - M54.9 CERVICALGIA - M54.2 TREATMENT MYALGIA TRIGGER POINT 3 + LAWANDA PRATER 05/29/2016 12:42:19 PM > NECK AND SHOULDERS RIGHT NOTES: MEDS PER [place] AND PRIMARY DOCTOR. PROCEDURE CODES FA211 ESTABILISHED PATIENT [facility] FACILITY CHARGE G8783 BP SCR PRFRM RCMDD DEFIND SCR INTVL G8730 PAIN ASSESS POS TOOL F/U PLAN DOC 3016F PT SCRND UNHLTHY OH USE 1123F ACP DISCUSS/DSCN MKR DOCD 1036F TOBACCO NON-USER 0518F FALL PLAN OF CARE DOCD G8427 DOC MEDS VERIFIED W/PT OR RE G8420 BMI<30 AND >=22 CALC & DOCU 3288F FALL RISK ASSESSMENT DOCD DISPOSITION & COMMUNICATION FOLLOW UP AFTER INJECTION (REASON: CHECK AUTH FOR TPI) ELECTRONICALLY SIGNED BY MILDRED STOCKTON ON 06/09/2016 AT 02:58 PM EDT DISCLAIMER : THIS IS A VISIT SUMMARY EXTRACTED FROM THE [employer] CHART. IT IS NOT A COPY OF THE [employer] PROGRESS NOTE. SANKET
== END ==
LOC: M PAIN 11:20
PROVIDERS: ATTEND Nurse Practitioner Family
DX: G89.29 Other chronic pain (principal); M79.1 Myalgia; M54.2 Cervicalgia; M54.5 Low back pain; J45.909 Unspecified asthma, uncomplicated; M19.90 Unspecified osteoarthritis, unspecified site; Z88.5 Allergy status to narcotic agent; Z88.0 Allergy status to penicillin; Z88.2 Allergy status to sulfonamides; Z88.8 Allergy status to other drugs, medicaments and biological substances; E73.9 Lactose intolerance, unspecified; Z91.013 Allergy to seafood; Z88.6 Allergy status to analgesic agent; Z79.891 Long term (current) use of opiate analgesic; Z79.899 Other long term (current) drug therapy

== ENCOUNTER → 2016-06-21 | Outpatient (CLI) | payer MEDICARE, BC ==
[~2016-06-21] MED LIST changes: +BUPIVACAINE HCL 0.25% 10 ML VIAL As Ordered ONE; +BUPIVACAINE HCL 0.25% 30 ML VIAL As Ordered ONE; +TRIAMCINOLONE ACETONIDE SUSP 40 MG/ML VIAL (J3301) As Ordered ONE
--- NOTE | 2016-06-25 23:51 | ECWPNPC ---
PATIENT NAME: LIZANDRO GOETZ : 1930 GENDER: FEMALE VISIT DATE: 06/21/2016 DISCHARGE DATE: 06/21/161530 VISIT LOCKED DATE TIME: PHYSICIAN: MELISSA BONILLA RESOURCE: MELISSA BONILLA REASON FOR APPOINTMENT 1. TPI NECK/SHOULDER HISTORY OF PRESENT ILLNESS HISTORY OF PRESENT ILLNESS: PAIN THE PATIENT DESCRIBES THE PAIN... THE PATIENT DESCRIBES THE PAIN... PAIN THE PATIENT DESCRIBES THE PAIN... THE PATIENT DESCRIBES THE PAIN... FALL RISK SCREENING: SCREENING :NO FALLS IN THE PAST YEAR :NO FALLS IN THE PAST YEAR SCREENING :NO FALLS IN THE PAST YEAR :NO FALLS IN THE PAST YEAR CURRENT MEDICATIONS TAKING PRESERVISION/LUTEIN CAPSULE ORALLY DAILY, NOTES: 06/20/16 9AM TAKING DILTIAZEM HCL 30 MG TABLET ORALLY EVERY 8 HOURS, NOTES: 06/20/16 522AM TAKING COLACE 100 MG CAPSULE 1 CAPSULE NEEDED ORALLY BID PRN, NOTES: 06/20/16 9AM TAKING FERROUS GLUCONATE 325 MG CAPSULE ORALLY DAILY, NOTES: 06/20/16 9AM TAKING GABAPENTIN 100 MG CAPSULE ORALLY BID, NOTES: 06/20/16 9AM TAKING VENTOLIN HFA 108 (90 BASE) MCG/ACT AEROSOL SOLUTION 2 PUFFS INHALATION ONCE A DAY, NOTES: UNK TAKING POTASSIUM CHLORIDE 10 MEQ CAPSULE EXTENDED RELEASE 1 CAPSULE ORALLY BID, NOTES: 06/20/16 9AM TAKING VITAMIN B12 100 MCG TABLET 1 500MCG TABLET ORALLY ONCE A DAY, NOTES: 06/20/16 9AM TAKING ALPHAGAN P 0.15 % SOLUTION 1 DROP INTO AFFECTED EYE OPHTHALMIC DIRECTED TAKING VITAMIN D 1000 UNIT TABLET 1 TABLET ORALLY ONCE A DAY TAKING PROTONIX 40 MG TABLET DELAYED RELEASE 1 TABLET ORALLY ONCE A DAY, NOTES: 06/20/16 9AM TAKING TYLENOL EXTRA STRENGTH 500 MG TABLET 1 TABLET NEEDED ORALLY EVERY 4 HRS, NOTES: 06/20/16 TAKING LEVOTHYROXINE SODIUM 50 MCG TABLET 1 TABLET ORALLY ONCE A DAY, NOTES: 06/20/16 0522 AM TAKING TRAMADOL HCL 50 MG TABLET 1 TAB ORALLY EVERY 12 HOURS NEEDED, NOTES: 06/20/16 0203 AM TAKING MAGNESIUM OXIDE 400 MG TABLET ORALLY BID, NOTES: 06/20/16 9AM TAKING MELATONIN 5 MG TABLET 1 TABLET AT BEDTIME NEEDED WITH FOOD ORALLY BEFORE BEDTIME, NOTES: 06/20/16 9PM TAKING CALCIUM CARBONATE 600 MG TABLET ORALLY BID, NOTES: 06/20/16 9AM TAKING PENNSAID 2 % SOLUTION 2 APPLICATIONS TO AFFECTED AREA TRANSDERMAL AT RIGHT KNEE THREE TIMES DAILY TAKING VOLTAREN 1 % GEL DIRECTED AT RIGHT KNEE TRANSDERMAL THREE TIMES DAILY NEEDED FOR PAIN, NOTES: 06/20/16 522AM TAKING MIRALAX - PACKET 1 PACKET MIXED WITH 8 OUNCES OF FLUID ORALLY ONCE A DAY TAKING SYMBICORT 80-4.5 MCG/ACT AEROSOL 2 PUFFS INHALATION TWICE A DAY TAKING CLARITIN 10 MG TABLET 1 TABLET ORALLY ONCE A DAY, NOTES: 06/20/16 9AM TAKING LATANOPROST 0.005 % SOLUTION 1 DROP INTO AFFECTED EYE IN THE EVENING OPHTHALMIC ONCE A DAY TAKING COMBIGAN 0.2-0.5 % SOLUTION 1 DROP INTO AFFECTED EYE OPHTHALMIC TWICE A DAY, NOTES: 06/20/16 9AM TAKING AZOPT 1 % SUSPENSION 1 DROP INTO AFFECTED EYE OPHTHALMIC BID, NOTES: 06/20/16 9AM TAKING METHAZOLAMIDE 25 MG TABLET 2 TABLETS ORALLY TWICE A DAY, NOTES: 06/20/16 9AM TAKING BREO ELLIPTA 100-25 MCG/INH AEROSOL POWDER BREATH ACTIVATED 1 PUFF INHALATION ONCE A DAY, NOTES: 06/20/16 09AM TAKING QUETIAPINE FUMARATE 50 MG TABLET 1 TABLET ORALLY BEFORE BEDTIME, NOTES: 06/20/16 915PM TAKING VITAMIN D-3 5000 UNIT TABLET 1 TABLET ORALLY ONCE A DAY, NOTES: 06/20/16 9AM TAKING ARTIFICIAL TEAR SOLUTION - SOLUTION 1 DROP OU OPHTHALMIC FOUR TIMES DAILY, NOTES: 06/20/16 9 AM TAKING SENOKOT S 8.6-50 MG TABLET 1 TABLET IN THE EVENING NEEDED ORALLY ONCE A DAY TAKING REFRESH OPTIVE ADVANCED 0.5-1-0.5 % SOLUTION 1 DROP OPHTHALMIC FOUR TIMES DAILY, NOTES: 06/20/16 9AM TAKING PROAIR HFA 108 (90 BASE) MCG/ACT AEROSOL SOLUTION 2 PUFFS NEEDED INHALATION EVERY 4 HRS, NOTES: 06/20/16 9AM TAKING NITROGLYCERIN 0.4 MG TABLET SUBLINGUAL SUBLINGUAL PRN TAKING MILK OF MAGNESIA 400 MG/5ML SUSPENSION 5 ML NEEDED ORALLY FOUR TIMES A DAY TAKING LOPERAMIDE A-D 2 MG TABLET 1-2 TABS ORALLY DAILY PRN TAKING ENEMA 7-19 GM/118ML ENEMA _ DAILY PRN TAKING CYMBALTA 60 MG 1 TABLET PO ONCE DAILY, NOTES: PM NOT-TAKING METHOTREXATE 2.5 MG TABLET ORALLY ONCE A WEEK, NOTES: NOT TAKING ANYMORE NOT-TAKING FOLIC ACID 1 MG TABLET 1 TABLET ORALLY ONCE A DAY NOT-TAKING SINGULAIR 10 MG TABLET 1 TABLET IN THE EVENING ORALLY ONCE A DAY, NOTES: 09/22/154 NOT-TAKING ALBUTEROL SULFATE (5 MG/ML) 0.5% NEBULIZATION SOLUTION 0.5 ML INHALATION THREE TIMES A DAY NOT-TAKING FLONASE 50 MCG/ACT SUSPENSION 1 PUFF IN EACH NOSTRIL NASALLY ONCE A DAY NOT-TAKING LUMIGAN 0.03 % SOLUTION 1 DROP INTO AFFECTED EYE EVERY EVENING OPHTHALMIC ONCE A DAY NOT-TAKING MULTI FOR HER TABLET DIRECTED ORALLY MEDICATION LIST REVIEWED AND RECONCILED WITH THE PATIENT PAST MEDICAL HISTORY ASTHMA ARTHRITIS SPRAINED RIGHT LEG ALLERGIES CODEINE SULFATE: HIVES: ALLERGY PENICILLIN G BENZATHINE: HIVES: ALLERGY SULFAMETHOXAZOLE: HIVES: ALLERGY IODINE: HIVES: ALLERGY LACTOSE: NAUSEA/VOMITING: ALLERGY SHELL FISH: NAUSEA/VOMITING: ALLERGY ASPIRIN: GI UPSET ALPRAZOLAM REVIEW OF SYSTEMS CONSTITUTIONAL: ANY CHANGE IN YOUR MEDICAL CONDITION? NO, NO . CHILLS NO, NO . FEVER NO, NO . INFECTION: DO YOU HAVE NEW INFECTIONS? NO, NO . DO YOU HAVE HISTORY OF MRSA? NO, NO . MUSCULOSKELETAL: ANY NEW PATTERNS OF PAIN OR NUMBNESS? NO, NO . GASTROENTEROLOGY: ANY NEW CHANGE IN BOWEL CONTROL? NO, NO . GENITOURINARY: ANY NEW CHANGE IN BLADDER CONTROL? NO, NO . IS THERE A CHANCE YOU COULD BE ? NO, NO . HEMATOLOGY/LYMPH: DO YOU TAKE ANY BLOOD THINNERS? (FOR EXAMPLE- COUMADIN, PLAVIX, AGGRENOX, PLATEL, PRADAXA, OR XARELTO) NO, NO . WHEN WAS YOUR LAST DOSE? DATE: TIME: , DATE: TIME: . NEUROLOGY: HAVE YOU FALLEN IN THE PAST 6 MONTHS? NO, NO . ANY NEW EXTREMITY NUMBNESS OR WEAKNESS? NO, NO . CARDIOLOGY: DO YOU HAVE A PACEMAKER OR DEFIBRILLATOR? NO, NO . RESPIRATORY: HAVE YOU BEEN SICK IN THE PAST WEEK? NO, NO . FEVER NO, NO . FLU LIKE SYMPTOMS? NO, NO . COUGH NO, NO . INTEGUMENTARY: DO YOU HAVE ANY RASHES OR OPEN SORES? NO, NO . ALLERGIC/IMMUNO: ARE YOU ALLERGIC TO SHELLFISH OR IV DYE? NO, NO . ANY NEW ALLERGIES? NO, NO . PSYCHIATRIC: DO YOU HAVE THOUGHTS OF HURTING YOURSELF OR SOMEONE ELSE? NO, NO . ARE YOU ABUSED, NEGLECTED, OR IN AN UNSAFE ENVIRONMENT? NO, NO . ENDOCRINOLOGY: ARE YOU DIABETIC? NO, NO . OTHER: DO YOU NEED ANY PRESCRIPTIONS? NO, NO . IF YES, PLEASE LIST: ____, ____ . ANY NEW PROBLEMS WITH YOUR MEDICATIONS? NO, NO . WHEN DID YOU LAST EAT? ____, ____0800 . WHEN DID YOU LAST DRINK? ____, ____0800 . WHAT DID YOU LAST DRINK? ____, ____COFFEE WITH CREAMER AND SUGAR . NAME OF PERSON DRIVING YOU HOME? ____, ____[employer] [address] [employer] . DO YOU HAVE ANY OTHER QUESTIONS OR CONCERNS NO, NO . REVIEWED BY: PROVIDER: , . VITAL SIGNS WT 119.4 LBS, HT 66 IN, BMI 19.27 INDEX, BP 126/69 MM HG, HR 54 /MIN, RR 16 /MIN, TEMP 98.4 F, OXYGEN SAT % 98%, NA INITIALS TL 1329, REVIEWED BY: NL. ASSESSMENTS MYALGIA - M79.1 (PRIMARY) PROCEDURES PN WORKMANS' COMP OPINION IN YOUR OPINION, WAS THE INCIDENT THAT THE PATIENT DESCRIBED THE COMPETENT MEDICAL CAUSE OF THIS INJURY/ILLNESS? YES ARE THE PATIENT'S COMPLAINTS CONSISTENT WITH HIS/HER HISTORY OF THE INJURY/ILLNESS? YES IS THE PATIENT'S HISTORY OF THE INJURY/ILLNESS CONSISTENT WITH YOUR OBJECTIVE FINDING? YES WHAT IS THE PERCENTAGE OF TEMPORARY IMPAIRMENT? MILD = 25% IS THE PATIENT WORKING? YES DOCTOR ON SITE: MELISSA TERRY MD PN TRIGGER POINT INJECTION WITH STEROIDS PRE PROCEDURE DIAGNOSIS 1. MYALGIA 2. PAIN AT BILATERAL NECK AREA AND RIGHT SHOULDER AREA POST PROCEDURE DIAGNOSIS 1. MYALGIA 2. PAIN AT BILATERAL NECK AREA AND RIGHT SHOULDER AREA PROCEDURE TRIGGER POINT INJECTION AT BILATERAL NECK AREA AND RIGHT SHOULDER AREA SURGEON DR. MELISSA BONILLA REST ROOM MAID NONE ANESTHESIA LOCAL PRE PROCEDURE NOTE THE PATIENT HAS A HISTORY OF CHRONIC PAIN AT THE RIGHT AND LEFT NECK AREA AND RIGHT SHOULDER AREA. I EVALUATE THE PATIENT AND REVIEWED THE CHART. THERE IS EVIDENCE OF BANDS OF TISSUE WITH RESTRICTION OF MOVEMENT AND PRESENCE OF TRIGGER POINT AT THE AFFECTED AREA. I WENT OVER THE RISKS, ALTERNATIVES, AND BENEFITS ASSOCIATED WITH THIS PROCEDURE. THE PATIENT WOULD LIKE TO PROCEED AND GIVE CONSENT TO PERFORMED THE PROCEDURE. THE PATIENT DENIES UNEXPLAINABLE WEIGHT LOSS, FEVER, CHILLS, OR NEW CHANGES IN URINARY OR BOWEL CONTROL DESCRIPTION OF PROCEDURE THE PATIENT WAS BROUGHT TO THE PROCEDURE ROOM AND PLACED IN THE SITTING POSITION. THE AREA WAS CLEANED WITH ALCOHOL. THE PROCEDURE WAS DONE USING ASEPTIC STERILE TECHNIQUE. I CHECKED LATERALITY AND THE LEVEL WHERE THE PROCEDURE WAS GOING TO BE PERFORMED WITH THE PATIENT AND THE SUPPORTING STAFF AT THE MOMENT OF THE TIME OUT IN THE PROCEDURE ROOM. USING A 25-GAUGE NEEDLE, TRIGGER POINTS WERE INJECTED AT THE RIGHT AND LEFT NECK AREA AND RIGHT SHOULDER AREA WITH A TOTAL OF 40 ML OF BUPIVACAINE 0.25% AND KENALOG 40 MG. THERE WAS NO EVIDENCE OF BLOOD, PARESTHESIA OR CEREBROSPINAL FLUID DURING THE PROCEDURE. THE PATIENT WAS SENT TO THE RECOVERY ROOM. THE PATIENT WAS MOVING THE EXTREMITIES AND DOING WELL. THERE WAS NO COMPLICATION DURING THE PROCEDURE POST PROCEDURE NOTE THE PATIENT WILL BE SEEN IN A FOLLOW UP IN THE NEXT FEW WEEKS. INSTRUCTIONS WERE GIVEN, QUESTIONS WERE ANSWERED, AND THE PATIENT EXPRESSED UNDERSTANDING AND AGREES WITH THE PLAN. I, ANDRE OREILLY, DOCUMENTED THE ABOVE INFORMATION ACTING A SCRIBE FOR DR. BONILLA. I HAVE REVIEWED THE ABOVE DOCUMENT, WRITTEN BY ANDRE RAMIREZ AND I VERIFY THAT IT IS ACCURATE PROCEDURE CODES 23441 INJ TRIGGER POINT / [facility] DISPOSITION & COMMUNICATION FOLLOW UP 3 WEEKS ELECTRONICALLY SIGNED BY MELISSA BONILLA MD ON 06/25/2016 AT 01:58 PM EDT DISCLAIMER : THIS IS A VISIT SUMMARY EXTRACTED FROM THE [employer] CHART. IT IS NOT A COPY OF THE [employer] PROGRESS NOTE. SANKET
== END ==
LOC: M PAIN 13:40
PROVIDERS: ATTEND Anesthesiology
DX: G89.29 Other chronic pain (principal); M79.1 Myalgia; M54.2 Cervicalgia; M25.511 Pain in right shoulder; J45.909 Unspecified asthma, uncomplicated; M19.90 Unspecified osteoarthritis, unspecified site; E73.9 Lactose intolerance, unspecified; Z88.5 Allergy status to narcotic agent; Z88.0 Allergy status to penicillin; Z88.2 Allergy status to sulfonamides; Z88.8 Allergy status to other drugs, medicaments and biological substances; Z91.013 Allergy to seafood; Z88.6 Allergy status to analgesic agent; Z79.51 Long term (current) use of inhaled steroids; Z79.899 Other long term (current) drug therapy
CPT/HCPCS: 20552; J3301

== ENCOUNTER → 2016-07-12 | Outpatient (CLI) | payer MEDICARE, BC ==
[~2016-07-12] MED LIST changes: -BUPIVACAINE HCL 0.25% 10 ML VIAL As Ordered ONE; -BUPIVACAINE HCL 0.25% 30 ML VIAL As Ordered ONE; -TRIAMCINOLONE ACETONIDE SUSP 40 MG/ML VIAL (J3301) As Ordered ONE
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
== END ==
LOC: M PAIN 10:20
PROVIDERS: ATTEND Nurse Practitioner Family
DX: G89.29 Other chronic pain (principal); M79.1 Myalgia; M54.2 Cervicalgia; J45.909 Unspecified asthma, uncomplicated; M19.90 Unspecified osteoarthritis, unspecified site; E73.9 Lactose intolerance, unspecified; Z91.013 Allergy to seafood; Z88.0 Allergy status to penicillin; Z88.5 Allergy status to narcotic agent; Z88.2 Allergy status to sulfonamides; Z88.8 Allergy status to other drugs, medicaments and biological substances; Z79.51 Long term (current) use of inhaled steroids; Z79.899 Other long term (current) drug therapy

== ENCOUNTER → 2016-07-20 | Outpatient (CLI) | payer MEDICARE, MEDICAID ==
--- NOTE | 2016-07-20 11:54 | REP ---
CT ABDOMEN AND PELVIS WITHOUT CONTRAST: COMPARISON: 04/16/2014. CT abdomen and pelvis performed without oral or IV contrast, with sagittal and coronal reconstruction images performed. In the visualized lung bases there is evidence of interstitial fibrosis with a calcified granuloma in the right lower lobe. Heart is mildly enlarged. Liver demonstrates a cyst in the left lobe 1.2 cm in diameter. Patient has had a cholecystectomy. Common bile duct is prominent in size as would be expected in a patient of this age. Diameter is 14 mm maximally. Tiny calcified granuloma is seen in the spleen with no other definite intrinsic abnormality. Adrenals, pancreas, and kidneys are grossly unremarkable. No renal calculi are seen and there is no hydronephrosis. Atherosclerotic calcifications are seen of the abdominal aorta with tortuosity, but no aneurysm. There is no evidence of adenopathy. I see no evidence of free air or free fluid. No definite bowel wall thickening is seen. No definite pelvic mass is seen. No anterior abdominal wall defect is seen. Urinary bladder appears grossly unremarkable. There is a small hiatal hernia. IMPRESSION: No gross abdominal or pelvic mass or adenopathy. However, evaluation is limited without oral or IV contrast. Chronic changes in the visualized lung bases. Small hiatal hernia. There appears to be a small cyst in the left lobe of the liver. Patient is status post cholecystectomy. Common bile duct measures 14 mm. Signed by Israel Everett MD 07/20/2016 03:34 P
== END ==
LOC: M RAD 10:50
PROVIDERS: ATTEND Surgery
DX: R10.9 Unspecified abdominal pain (principal)

== ENCOUNTER 2016-08-15 10:06 | Emergency (ER) | payer MEDICARE, MEDICAID ==
[~2016-08-15] VITALS: Ht 160 cm; Wt 60.0 kg
[~2016-08-15 10:06] MED LIST changes: +ACET-683 PO; -ACET500T37 PO; -CALC600T21 PO; +CALC600T60 PO; -COLA100C3 PO; +COLA100C5 PO; +LOPE2CAP PO; -LOPE2TAB PO; -MULTCHW13 PO; +MULTCHW14 PO; +PLAV1TAB2 PO; -PLAV75TA38 PO; -ULTR50TA PO; +ULTR50TA8 PO; -XALA0.002 OU; +XALA0.007 OD
[2016-08-15] MEDS ORDERED: VITA500046 PO (10:51)
[2016-08-15] MEDS ORDERED: COMB0.2S OD (10:51)
[2016-08-15] MEDS ORDERED: BENT10CA PO (10:51)
[2016-08-15] MEDS ORDERED: ARTI99.0 OU (10:51)
[2016-08-15] MEDS ORDERED: BREO1INH INH (10:51)
[2016-08-15] MEDS ORDERED: METH25TA3 PO (10:51)
[2016-08-15] MEDS ORDERED: AZOP0.2S OD (10:51)
[2016-08-15] MEDS ORDERED: PREDOPD OD (10:51)
[2016-08-15] MEDS ORDERED: VOLT1GEL15 TOP (10:51)
[2016-08-15] MEDS ORDERED: ULTRACET TAB PO ONE (11:00)
--- NOTE | 2016-08-15 11:10 | REP ---
Clinical: Trauma. Technique: Axial noncontrast images from the skull base to the thoracic inlet with coronal and sagittal re-formations. Comparison: 06/07/2014. Findings: Advanced multilevel degenerative disc osteophyte complexes are appreciated including anterior osteophytosis, posterior spurring, endplate sclerosis, disc space narrowing and hypertrophic changes to the uncovertebral joints. Degenerative changes are also appreciated at the C1-C2 level including calcifications to the transverse ligament as well as chronic reversal of lordosis at the C2-3 level with approximately 3 mm of anterolisthesis. There is no evidence for acute fracture / compression injury or subluxation. The spinal canal appears patent. The paravertebral soft tissues are grossly normal. A 1.1 cm low density nodule in the right thyroid lobe is unchanged. Impression: 1. Chronic, stable advanced multilevel degenerative changes. 2. No acute cervical spine pathology or trauma/injury identified. Signed by Checo Delgado MD 08/15/2016 11:01 A
--- NOTE | 2016-08-15 12:09 | REP ---
Clinical: Trauma. Technique: AP, lateral, bilateral oblique views of the right foot. Findings: Advanced osteopenia and degenerative changes are appreciated. No obvious acute fracture or dislocation. No subcutaneous emphysema or radiodense foreign body. Impression: Osteopenia and degenerative changes. No acute fracture or dislocation. Signed by Checo Delgado MD 08/15/2016 12:01 P
--- NOTE | 2016-08-15 12:10 | REP ---
Clinical: Trauma. Technique: AP, lateral, bilateral oblique views of the right hand. Findings: Advanced osteopenia and arthritic degenerative changes are appreciated. No obvious acute fracture or dislocation. No subcutaneous emphysema or radiodense foreign body. Impression: Osteopenia and degenerative changes. No acute fracture or dislocation. Signed by Checo Delgado MD 08/15/2016 12:02 P
[2016-08-15 15:29] VITALS: BP 138/67
== END 2016-08-15 15:30 | disposition home or self-care (01) ==
LOC: EDBD 10:06 → M ED 10:06
DX: S93.601A Unspecified sprain of right foot, initial encounter (principal); S63.501A Unspecified sprain of right wrist, initial encounter; W18.30XA Fall on same level, unspecified, initial encounter; Y92.9 Unspecified place or not applicable; Y93.89 Activity, other specified; Y99.9 Unspecified external cause status; I51.9 Heart disease, unspecified; E11.9 Type 2 diabetes mellitus without complications; G47.30 Sleep apnea, unspecified; J45.909 Unspecified asthma, uncomplicated; M50.30 Other cervical disc degeneration, unspecified cervical region; M85.841 Other specified disorders of bone density and structure, right hand; M85.871 Other specified disorders of bone density and structure, right ankle and foot; Z79.899 Other long term (current) drug therapy; Z79.51 Long term (current) use of inhaled steroids; Z88.5 Allergy status to narcotic agent; Z88.0 Allergy status to penicillin; Z88.8 Allergy status to other drugs, medicaments and biological substances; Z88.2 Allergy status to sulfonamides; Z91.89 Other specified personal risk factors, not elsewhere classified; Z88.6 Allergy status to analgesic agent; K90.41 Non-celiac gluten sensitivity; E73.9 Lactose intolerance, unspecified; Z91.013 Allergy to seafood

== ENCOUNTER 2016-09-21 08:55 | Emergency (ER) | payer MEDICARE, MEDICAID ==
[~2016-09-21] VITALS: Ht 160 cm; Wt 47.3 kg
[~2016-09-21 08:55] MED LIST changes: +AZOP0.2S OD; +BENT10CA PO; +BREO1INH INH; +COMB0.2S OD; +METH25TA3 PO; +PREDOPD OD; +VOLT1GEL15 TOP
[2016-09-21] MEDS ORDERED: DILT30TA PO (09:52)
[2016-09-21] MEDS ORDERED: ATRO1OPD OD (09:52)
[2016-09-21] MEDS ORDERED: LORA10TA2 PO (09:52)
[2016-09-21] MEDS ORDERED: FOLI1TAB4 PO (09:52)
[2016-09-21] MEDS ORDERED: NITR4TASL SL (09:52)
[2016-09-21] MEDS ORDERED: OPTI0.5D5 OD (09:52)
[2016-09-21] MEDS ORDERED: BREO1INH INH (09:52)
[2016-09-21] MEDS ORDERED: ACETAMINOPHEN TAB 650MG DOSE (2X325MG) PO ONE (10:00)
--- NOTE | 2016-09-21 10:36 | REP ---
CT CERVICAL SPINE WITHOUT CONTRAST: HISTORY: Trauma. COMPARISON: 08/15/2016. There is no acute fracture. Disc bulges with associated osteophyte formation are present at the C3-4 through C6-7 levels. There is minimal to mild narrowing of the spinal canal. Uncinate process and/or facet hypertrophy are present at the C2-3 through C7-T1 levels. These findings produce minimal to moderate narrowing of the neural foramina. The C2-3 through C6-7 intervertebral discs are decreased in height consistent with disc degeneration. There are 3 mm of anterior subluxation of C2 on 3. A 1 cm hypodensity containing a calcification is present in the right thyroid lobe. This most likely represents a cyst. A calcification is present in the left thyroid lobe. Calcifications are present in the tonsils . This is secondary to previous inflammatory disease. IMPRESSION: 1. There is no acute fracture. 2. There is cervical spondylosis at the C2-3 through C7-T1 levels. Signed by Dontae Ambrosio MD 09/21/2016 10:40 A
--- NOTE | 2016-09-21 10:46 | REP ---
LEFT ELBOW, FIVE VIEWS: HISTORY: Trauma. There is no definite fracture. There is no dislocation. A joint effusion is present. The bony structure is osteopenic. IMPRESSION: There is no definite fracture. A joint effusion is present. An occult fracture cannot be excluded. A repeat examination in 5-7 days is recommended for further evaluation. Signed by Dontae Ambrosio MD 09/21/2016 10:49 A
[2016-09-21 11:07] VITALS: BP 160/82
== END 2016-09-21 11:27 | disposition home or self-care (01) ==
LOC: EDBD 08:55 → M ED 08:55
DX: S16.1XXA Strain of muscle, fascia and tendon at neck level, initial encounter (principal); S50.01XA Contusion of right elbow, initial encounter; W10.8XXA Fall (on) (from) other stairs and steps, initial encounter; Y92.9 Unspecified place or not applicable; Y93.9 Activity, unspecified; Y99.9 Unspecified external cause status; I10 Essential (primary) hypertension; K21.9 Gastro-esophageal reflux disease without esophagitis; H40.9 Unspecified glaucoma; H35.30 Unspecified macular degeneration; M47.812 Spondylosis without myelopathy or radiculopathy, cervical region; M47.813 Spondylosis without myelopathy or radiculopathy, cervicothoracic region; Z79.899 Other long term (current) drug therapy; Z91.040 Latex allergy status; Z88.5 Allergy status to narcotic agent; Z88.0 Allergy status to penicillin; Z88.8 Allergy status to other drugs, medicaments and biological substances; Z88.2 Allergy status to sulfonamides; Z88.6 Allergy status to analgesic agent; Z91.018 Allergy to other foods; Z91.011 Allergy to milk products; Z91.013 Allergy to seafood; Z91.89 Other specified personal risk factors, not elsewhere classified

== ENCOUNTER 2016-09-25 15:15 | Emergency (ER) | payer MEDICARE, MEDICAID ==
[~2016-09-25] VITALS: Ht 160 cm; Wt 68.0 kg
[~2016-09-25 15:15] MED LIST changes: +ATRO1OPD OD; +FOLI1TAB4 PO; +LORA10TA2 PO; +OPTI0.5D5 OD
--- NOTE | 2016-09-25 16:07 | REP ---
Portable chest, 04:01 p.m., single AP view, patient sitting: Comparisons are 12/12/2013 and 05/04 2016. There is a stable granuloma inferiorly in the right lung. There is mild discoid atelectasis inferiorly in the right lung. The right left lung moore otherwise clear. Cardiac size is normal. The pavel, mediastinum, and bony thorax are unremarkable. Impression: Discoid atelectasis inferiorly in the right lung. Stable granuloma inferiorly in the right lung. Signed by Israel Foy MD 09/25/2016 03:58 P
[2016-09-25 16:21] LABS: BASO % 0.4 % (0.0-1.0); EOS # 0.1 K/mm3 (0.0-0.50); LARGE UNSTAINED CELL # 0.1 K/mm3 (0.0-0.4); LARGE UNSTAINED CELL % 1.6 % (0.0-4.0); LYMPH # 1.6 K/mm3 (1.5-4.5); LYMPH % 31.9 % (24.0-44.0); MEAN CORPUSCULAR HEMOGLOBIN 33.3 pg (27.0-33.0); MEAN CORPUSCULAR HGB CONC 32.7 g/dl (32.0-36.5); MEAN CORPUSCULAR VOLUME 101.9 fl (80.0-96.0); MONO # 0.3 K/mm3 (0.0-0.8); MONO % 7.1 % (0.0-5.0); NEUTROPHILS # 2.6 K/mm3 (1.8-7.7); PLATELET COUNT, AUTOMATED 166 k/mm3 (150-450); RED CELL DISTRIBUTION WIDTH 12.9 % (11.5-14.5); WHITE BLOOD COUNT 4.7 K/mm3 (4.0-10.0)
[2016-09-25 16:40] LABS: ALBUMIN 3.2 GM/DL (3.2-5.2); ALBUMIN/GLOBULIN RATIO 0.91 (1.00-1.93); ALKALINE PHOSPHATASE 74 U/L (45-117); ALT/SGPT 11 U/L (12-78); ANION GAP 9 MEQ/L (8-16); AST/SGOT 16 U/L (15-37); BILIRUBIN,DIRECT < 0.1 MG/DL (0.0-0.2); BILIRUBIN,TOTAL 0.3 MG/DL (0.2-1.0); BLOOD UREA NITROGEN 24 MG/DL (7-18); CALCIUM LEVEL 8.4 MG/DL (8.8-10.2); CARBON DIOXIDE LEVEL 25 MEQ/L (21-32); CHLORIDE LEVEL 102 MEQ/L (98-107); CREATININE FOR GFR 0.74 MG/DL (0.55-1.02); GLOMERULAR FILTRATION RATE > 60.0 (>32); GLUCOSE, FASTING 88 MG/DL (83-110); POTASSIUM SERUM 4.2 MEQ/L (3.5-5.1); SODIUM LEVEL 136 MEQ/L (136-145); TOTAL PROTEIN 6.7 GM/DL (6.4-8.2)
[2016-09-25 18:23] LABS: RBC, URINE NONE SEEN /hpf (0-3); WBC, URINE NONE SEEN /hpf (0-3)
[2016-09-25 18:24] LABS: BACTERIA, URINE SMALL AMOUNT; HYALINE CAST, URINE NONE SEEN /lpf (0-1); MICROSCOPIC EXAM PERFORMED; SQUAMOUS EPITHELIAL CELL URINE NONE SEEN /hpf (SMALL AMT)
[2016-09-25 18:25] LABS: MICROSCOPIC INDICATED? NO (NO)
[2016-09-25 18:49] VITALS: BP 128/66
--- NOTE | 2016-09-25 20:36 | ECGEPIP ---
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
== END 2016-09-25 19:25 | disposition home or self-care (01) ==
LOC: M ED 15:15 → EDBD 15:15 → M ED 19:25
DX: I49.9 Cardiac arrhythmia, unspecified (principal); I51.9 Heart disease, unspecified; I10 Essential (primary) hypertension; Z95.1 Presence of aortocoronary bypass graft; Z86.718 Personal history of other venous thrombosis and embolism; R91.8 Other nonspecific abnormal finding of lung field; Z79.899 Other long term (current) drug therapy; Z91.040 Latex allergy status; Z88.5 Allergy status to narcotic agent; Z88.0 Allergy status to penicillin; Z88.8 Allergy status to other drugs, medicaments and biological substances; Z88.2 Allergy status to sulfonamides; Z88.6 Allergy status to analgesic agent; Z91.013 Allergy to seafood; Z91.89 Other specified personal risk factors, not elsewhere classified; K90.41 Non-celiac gluten sensitivity; E73.9 Lactose intolerance, unspecified
CPT/HCPCS: 71010; 80048; 80076; 81001; 82550; 82553; 84443; 84484; 85025; 87086; 93005; 93041; 94760; 99285; G0480

== ENCOUNTER 2016-09-30 10:38 | Emergency (ER) | payer MEDICARE, MEDICAID ==
[~2016-09-30] VITALS: Ht 14 cm; Wt 124.4 kg
[2016-09-30] MEDS ORDERED: PROAAER10 INH (11:29)
[2016-09-30] MEDS ORDERED: ALBU83IN INH (11:29)
[2016-09-30] MEDS ORDERED: PRED1SUS OU (11:29)
[2016-09-30 15:32] VITALS: BP 188/94
== END 2016-09-30 15:44 | disposition home or self-care (01) ==
LOC: M ED 10:38 → EDBD 10:38 → M ED 15:44
DX: M79.602 Pain in left arm (principal); Z46.89 Encounter for fitting and adjustment of other specified devices; I10 Essential (primary) hypertension; Z87.440 Personal history of urinary (tract) infections; E03.9 Hypothyroidism, unspecified; Z79.899 Other long term (current) drug therapy; Z91.040 Latex allergy status; Z88.5 Allergy status to narcotic agent; Z88.8 Allergy status to other drugs, medicaments and biological substances; Z88.2 Allergy status to sulfonamides; Z88.6 Allergy status to analgesic agent; Z91.030 Bee allergy status; Z91.89 Other specified personal risk factors, not elsewhere classified; Z91.018 Allergy to other foods; E73.9 Lactose intolerance, unspecified

== ENCOUNTER → 2016-10-10 | Outpatient (REF) ==
[~2016-10-10] MED LIST changes: +PRED1SUS OU; +PROAAER10 INH
[2016-10-10 10:35] LABS: MEAN CORPUSCULAR HEMOGLOBIN 33.1 pg (27.0-33.0); MEAN CORPUSCULAR VOLUME 97.6 fl (80.0-96.0); RED CELL DISTRIBUTION WIDTH 12.6 % (11.5-14.5); WHITE BLOOD COUNT 5.9 K/mm3 (4.0-10.0)
[2016-10-10 11:15] LABS: ANION GAP 12 MEQ/L (8-16); BLOOD UREA NITROGEN 12 MG/DL (7-18); CALCIUM LEVEL 8.3 MG/DL (8.8-10.2); CARBON DIOXIDE LEVEL 25 MEQ/L (21-32); CHLORIDE LEVEL 99 MEQ/L (98-107); CREATININE FOR GFR 0.79 MG/DL (0.55-1.02); GLOMERULAR FILTRATION RATE > 60.0 (>32); GLUCOSE, FASTING 105 MG/DL (83-110); MAGNESIUM LEVEL 2.3 MG/DL (1.8-2.4); POTASSIUM SERUM 3.5 MEQ/L (3.5-5.1); SODIUM LEVEL 136 MEQ/L (136-145)
== END ==
PROVIDERS: ATTEND Internal Medicine
DX: I10 Essential (primary) hypertension (principal)

== ENCOUNTER → 2016-10-24 | Outpatient (REF) | payer MEDICARE, MEDICAID, BC ==
[2016-10-24 11:01] LABS: MEAN CORPUSCULAR HGB CONC 33.1 g/dl (32.0-36.5); MEAN CORPUSCULAR VOLUME 99.7 fl (80.0-96.0); RED CELL DISTRIBUTION WIDTH 12.7 % (11.5-14.5); WHITE BLOOD COUNT 3.2 K/mm3 (4.0-10.0)
[2016-10-24 11:28] LABS: ANION GAP 10 MEQ/L (8-16); BLOOD UREA NITROGEN 14 MG/DL (7-18); CALCIUM LEVEL 8.5 MG/DL (8.8-10.2); CARBON DIOXIDE LEVEL 27 MEQ/L (21-32); CHLORIDE LEVEL 99 MEQ/L (98-107); CREATININE FOR GFR 0.67 MG/DL (0.55-1.02); GLOMERULAR FILTRATION RATE > 60.0 (>32); GLUCOSE, FASTING 85 MG/DL (83-110); POTASSIUM SERUM 3.2 MEQ/L (3.5-5.1); SODIUM LEVEL 136 MEQ/L (136-145)
== END ==
PROVIDERS: ATTEND Internal Medicine
DX: I10 Essential (primary) hypertension (principal)

== ENCOUNTER → 2016-10-31 | Outpatient (REF) | payer MEDICARE, MEDICAID, BC ==
[2016-10-31 10:27] LABS: MEAN CORPUSCULAR HEMOGLOBIN 33.6 pg (27.0-33.0); MEAN CORPUSCULAR HGB CONC 33.3 g/dl (32.0-36.5); RED CELL DISTRIBUTION WIDTH 12.7 % (11.5-14.5); WHITE BLOOD COUNT 3.3 K/mm3 (4.0-10.0)
[2016-10-31 10:51] LABS: ANION GAP 11 MEQ/L (8-16); BLOOD UREA NITROGEN 14 MG/DL (7-18); CALCIUM LEVEL 8.8 MG/DL (8.8-10.2); CARBON DIOXIDE LEVEL 25 MEQ/L (21-32); CHLORIDE LEVEL 102 MEQ/L (98-107); CREATININE FOR GFR 0.61 MG/DL (0.55-1.02); FERRITIN 119 NG/ML (8-252); GLOMERULAR FILTRATION RATE > 60.0 (>32); GLUCOSE, FASTING 93 MG/DL (83-110); PERCENT SATURATION 37.1 % (13.2-45.0); POTASSIUM SERUM 3.8 MEQ/L (3.5-5.1); SODIUM LEVEL 138 MEQ/L (136-145); TOTAL IRON BINDING CAPACITY 248 UG/DL (250-450)
[2016-10-31 10:52] LABS: FOLATE 20.6 NG/ML (>5.4)
== END ==
PROVIDERS: ATTEND Internal Medicine
DX: D64.9 Anemia, unspecified (principal); I10 Essential (primary) hypertension

== ENCOUNTER → 2016-11-14 | Outpatient (REF) | payer MEDICARE, MEDICAID, BC ==
--- NOTE | 2016-11-14 15:47 | REP ---
Right TIB-fib series: Four views. History: History of a fall. Findings: Four views of the right tibia and fibula demonstrate severe diffuse osteopenia. No fracture is seen. There are osteoarthritic changes at the knee. Impression: No traumatic abnormality noted. Advanced osteopenia. Signed by Jose Man MD 11/14/2016 05:16 P
--- NOTE | 2016-11-14 15:48 | REP ---
RIGHT KNEE SERIES: Five views right knee performed. There is no acute fracture or dislocation. There is mild medial joint space narrowing with subchondral sclerosis and spurring. There is significant patellofemoral joint space narrowing with subchondral sclerosis. There is mild patellar facet spurring diffusely. IMPRESSION: Degenerative changes. No evidence of acute fracture or dislocation. Signed by Israel Everett MD 11/14/2016 04:17 P
--- NOTE | 2016-11-14 15:52 | REP ---
Right foot four views: There is demineralization. On one-view there are findings compatible with nondisplaced fractures in the neck of the third digit metatarsal and in the neck of the fourth digit metatarsal and at the base of the fourth digit proximal phalange. This should be correlated with clinical point tenderness. There is a slight dorsal soft tissue edema. No other fractures are identified. No dislocation. No calcifications or foreign bodies. Calcaneal plantar and Achilles spurs are incidentally noted. Impression: Questionable fractures as described identified on one view only. Signed by Israel Foy MD 11/14/2016 03:44 P
== END ==
PROVIDERS: ATTEND Internal Medicine
DX: M25.571 Pain in right ankle and joints of right foot (principal); R29.6 Repeated falls

== ENCOUNTER → 2016-11-14 | Outpatient (CLI) | payer MEDICARE, MEDICAID | LOC: M RAD 13:51 | PROVIDERS: ATTEND Physician Assistant | DX: M25.561 Pain in right knee (principal) ==

== ENCOUNTER → 2016-11-15 | Outpatient (REF) | payer MEDICARE, MEDICAID ==
[2016-11-15 15:37] LABS: CALCIUM OXALATE CRYSTALS LARGE
[2016-11-15 15:43] LABS: MEAN CORPUSCULAR HEMOGLOBIN 32.4 pg (27.0-33.0); MEAN CORPUSCULAR HGB CONC 32.5 g/dl (32.0-36.5); MEAN CORPUSCULAR VOLUME 99.7 fl (80.0-96.0); WHITE BLOOD COUNT 5.1 10^3/uL (4.0-10.0)
[2016-11-15 16:24] LABS: ANION GAP 10 MEQ/L (8-16); BLOOD UREA NITROGEN 16 MG/DL (7-18); CALCIUM LEVEL 8.7 MG/DL (8.8-10.2); CARBON DIOXIDE LEVEL 25 MEQ/L (21-32); CHLORIDE LEVEL 101 MEQ/L (98-107); CREATININE FOR GFR 0.64 MG/DL (0.55-1.02); GLOMERULAR FILTRATION RATE > 60.0 (>32); GLUCOSE, FASTING 94 MG/DL (83-110); POTASSIUM SERUM 3.8 MEQ/L (3.5-5.1); SODIUM LEVEL 136 MEQ/L (136-145)
== END ==
PROVIDERS: ATTEND Internal Medicine
DX: R30.0 Dysuria (principal)

== ENCOUNTER → 2016-11-28 | Outpatient (REF) | payer MEDICARE, MEDICAID ==
--- NOTE | 2016-11-28 12:40 | REP ---
RIGHT KNEE, FIVE VIEWS: HISTORY: Pain. COMPARISON: 11/14/2016 There is no acute fracture or dislocation. There is narrowing of the joint spaces with associated osteophyte formation. The bony structure is osteopenic. IMPRESSION: Degenerative change as described above. Signed by Dontae Ambrosio MD 11/28/2016 01:59 P
--- NOTE | 2016-11-28 12:43 | REP ---
RIGHT FOOT, FOUR VIEWS: HISTORY: Fall. There are fractures of the heads of the 2nd through 5th metatarsals. There is no dislocation. There is narrowing of the 1st metatarsophalangeal joint space and intermediate and distal interphalangeal joint spaces of the 1st through 5th digits. An osteophyte is present on the posterior calcaneus. Calcifications are present inferior to the calcaneus. This represents ligamentous or tendon calcification. The bony structure is osteopenic. IMPRESSION: There are fractures of the heads of the 2nd through 5th metatarsals. Signed by Dontae Ambrosio MD 11/28/2016 01:59 P
== END ==
PROVIDERS: ATTEND Internal Medicine
DX: M17.11 Unilateral primary osteoarthritis, right knee (principal)

== ENCOUNTER → 2016-12-26 | Outpatient (REF) | payer MEDICARE, MEDICAID ==
[2016-12-26 17:36] LABS: MEAN CORPUSCULAR HGB CONC 31.8 g/dl (32.0-36.5); MEAN CORPUSCULAR VOLUME 100.6 fl (80.0-96.0); PLATELET COUNT, AUTOMATED 184 10^3/uL (150-450); RED CELL DISTRIBUTION WIDTH 13.1 % (11.5-14.5); WHITE BLOOD COUNT 4.7 10^3/uL (4.0-10.0)
[2016-12-26 19:30] LABS: ANION GAP 8 MEQ/L (8-16); BLOOD UREA NITROGEN 20 MG/DL (7-18); CALCIUM LEVEL 8.8 MG/DL (8.8-10.2); CARBON DIOXIDE LEVEL 28 MEQ/L (21-32); CHLORIDE LEVEL 101 MEQ/L (98-107); CREATININE FOR GFR 0.59 MG/DL (0.55-1.02); GLOMERULAR FILTRATION RATE > 60.0 (>32); GLUCOSE, FASTING 62 MG/DL (83-110); POTASSIUM SERUM 3.5 MEQ/L (3.5-5.1); SODIUM LEVEL 137 MEQ/L (136-145)
== END ==
PROVIDERS: ATTEND Internal Medicine
DX: N39.0 Urinary tract infection, site not specified (principal)

== ENCOUNTER → 2017-01-31 | Outpatient (REF) | payer MEDICARE, MEDICAID ==
[2017-01-31 13:12] LABS: MEAN CORPUSCULAR HEMOGLOBIN 32.5 pg (27.0-33.0); MEAN CORPUSCULAR HGB CONC 32.9 g/dl (32.0-36.5); MEAN CORPUSCULAR VOLUME 98.7 fl (80.0-96.0); PLATELET COUNT, AUTOMATED 275 10^3/uL (150-450); WHITE BLOOD COUNT 9.9 10^3/uL (4.0-10.0)
[2017-01-31 13:29] LABS: ALBUMIN 2.7 GM/DL (3.2-5.2); ALBUMIN/GLOBULIN RATIO 0.77 (1.00-1.93); ALKALINE PHOSPHATASE 85 U/L (45-117); ALT/SGPT 12 U/L (12-78); ANION GAP 10 MEQ/L (8-16); AST/SGOT 12 U/L (7-37); BILIRUBIN,TOTAL 0.2 MG/DL (0.2-1.0); BLOOD UREA NITROGEN 20 MG/DL (7-18); CALCIUM LEVEL 8.2 MG/DL (8.8-10.2); CARBON DIOXIDE LEVEL 27 MEQ/L (21-32); CHLORIDE LEVEL 103 MEQ/L (98-107); CREATININE FOR GFR 0.62 MG/DL (0.55-1.02); GLOMERULAR FILTRATION RATE > 60.0 (>32); GLUCOSE, FASTING 99 MG/DL (83-110); POTASSIUM SERUM 3.8 MEQ/L (3.5-5.1); SODIUM LEVEL 140 MEQ/L (136-145); TOTAL PROTEIN 6.2 GM/DL (6.4-8.2)
--- NOTE | 2017-01-31 19:21 | REP ---
CHEST: AP view of the chest is performed and compared to prior study of 09/25/2016. Stable calcified granuloma in the right lung base is noted. There is mild bibasilar fibroatelectatic change which is stable. There is no acute infiltrate or pulmonary edema. There is mild cardiomegaly. There is calcification and tortuosity of the thoracic aorta. The mediastinal silhouette is unchanged. IMPRESSION: Mild cardiomegaly and stable chronic changes. No acute infiltrate. Signed by Israel Everett MD 02/01/2017 08:29 P
== END ==
PROVIDERS: ATTEND Internal Medicine
DX: R50.9 Fever, unspecified (principal)

== ENCOUNTER → 2017-03-31 | Outpatient (REF) | payer MEDICARE, MEDICAID ==
[2017-04-01 08:43] LABS: HEMATOCRIT 34.7 % (36.0-47.0); HEMOGLOBIN 11.9 g/dl (12.0-16.0); MEAN CORPUSCULAR HEMOGLOBIN 32.5 pg (27.0-33.0); MEAN CORPUSCULAR HGB CONC 34.3 g/dl (32.0-36.5); MEAN CORPUSCULAR VOLUME 94.8 fl (80.0-96.0); PLATELET COUNT, AUTOMATED 182 10^3/uL (150-450); RED BLOOD COUNT 3.66 10^6/uL (4.00-5.40); RED CELL DISTRIBUTION WIDTH 12.3 % (11.5-14.5); WHITE BLOOD COUNT 5.2 10^3/uL (4.0-10.0)
[2017-04-01 08:44] LABS: ANION GAP 9 MEQ/L (8-16); BLOOD UREA NITROGEN 15 MG/DL (7-18); CALCIUM LEVEL 8.5 MG/DL (8.8-10.2); CARBON DIOXIDE LEVEL 27 MEQ/L (21-32); CHLORIDE LEVEL 93 MEQ/L (98-107); CREATININE FOR GFR 0.62 MG/DL (0.55-1.30); GLOMERULAR FILTRATION RATE > 60.0 (>32); GLUCOSE, FASTING 104 MG/DL (70-100); POTASSIUM SERUM 4.2 MEQ/L (3.5-5.1); SODIUM LEVEL 129 MEQ/L (136-145)
== END ==
LOC: M LAB 12:00
DX: R11.2 Nausea with vomiting, unspecified (principal)
CPT/HCPCS: 80048

== ENCOUNTER → 2017-07-26 | Outpatient (REF) ==
[2017-07-26 11:05] LABS: HEMATOCRIT 27.5 % (36.0-47.0); HEMOGLOBIN 9.4 g/dl (12.0-15.5); MEAN CORPUSCULAR HEMOGLOBIN 32.5 pg (27.0-33.0); MEAN CORPUSCULAR HGB CONC 34.2 g/dl (32.0-36.5); MEAN CORPUSCULAR VOLUME 95.2 fl (80.0-96.0); PLATELET COUNT, AUTOMATED 185 10^3/uL (150-450); RED BLOOD COUNT 2.89 10^6/uL (4.00-5.40); RED CELL DISTRIBUTION WIDTH 13.2 % (11.5-14.5); WHITE BLOOD COUNT 4.5 10^3/uL (4.0-10.0)
== END ==
DX: D64.9 Anemia, unspecified (principal)

== ENCOUNTER → 2017-08-28 | Outpatient (REF) | payer MEDICARE, MEDICAID ==
[2017-08-28 12:04] LABS: HEMATOCRIT 33.8 % (36.0-47.0); HEMOGLOBIN 11.3 g/dl (12.0-15.5); MEAN CORPUSCULAR HEMOGLOBIN 31.9 pg (27.0-33.0); MEAN CORPUSCULAR HGB CONC 33.4 g/dl (32.0-36.5); MEAN CORPUSCULAR VOLUME 95.5 fl (80.0-96.0); PLATELET COUNT, AUTOMATED 233 10^3/uL (150-450); RED BLOOD COUNT 3.54 10^6/uL (4.00-5.40); RED CELL DISTRIBUTION WIDTH 13.5 % (11.5-14.5); WHITE BLOOD COUNT 5.6 10^3/uL (4.0-10.0)
== END ==
DX: D64.9 Anemia, unspecified (principal)
CPT/HCPCS: 85027

== ENCOUNTER → 2017-10-30 | Outpatient (REF) | payer MEDICARE, MEDICAID ==
[2017-10-30 11:39] LABS: FREE T4 0.98 NG/DL (0.76-1.46)
== END ==
DX: E03.9 Hypothyroidism, unspecified (principal)
CPT/HCPCS: 84443